=== PATIENT | male | born 1945 | race Two or more races ===

== ENCOUNTER 2016-11-25 16:32 | Inpatient (IN) | payer MEDICARE, OTHER ==
[~2016-11-25] VITALS: Ht 177.8 cm; Wt 72.3 kg
[2016-11-25] MEDS ORDERED: SPIR25TA3 PO (17:17)
[2016-11-25] MEDS ORDERED: SERT100T PO (17:17)
[2016-11-25] MEDS ORDERED: INUL2TAB4 PO (17:17)
[2016-11-25] MEDS ORDERED: POLY17PO5 PO (17:17)
[2016-11-25] MEDS ORDERED: [UNRECOGNIZED DRUG - OTHER] PO (17:17)
[2016-11-25] MEDS ORDERED: SIMV40TA PO (17:17)
[2016-11-25] MEDS ORDERED: BISA10SU2 RC (17:17)
[2016-11-25] MEDS ORDERED: ASPI81TA50 PO (17:17)
[2016-11-25] MEDS ORDERED: MAGN2400 PO (17:17)
[2016-11-25] MEDS ORDERED: MULTI PO (17:17)
[2016-11-25] MEDS ORDERED: DEXT1DRO7 OP (17:17)
[2016-11-25] MEDS ORDERED: PRAM1TAB5 PO (17:17)
[2016-11-25] MEDS ORDERED: CLON0.2T PO (17:17)
[2016-11-25] MEDS ORDERED: LISI-334 PO (17:17)
[2016-11-25] MEDS ORDERED: METO100T2 PO (17:17)
[2016-11-25] MEDS ORDERED: BUPR300T3 PO (17:17)
[2016-11-25] MEDS ORDERED: QUET25TA PO (17:17)
[2016-11-25] MEDS ORDERED: HYDR25TA9 PO (17:17)
[2016-11-25] MEDS ORDERED: POTA10TA12 PO (17:17)
[2016-11-25] MEDS ORDERED: BISACODYL 10 MG SUPP.RECT RC PRN (18:15)
[2016-11-25] MEDS ORDERED: MAG HYDROX/AL HYDROX/SIMETH 30 ML ORAL.SUSP PO PRN (18:15)
[2016-11-25] MEDS ORDERED: METHYL SALICYLATE/MENTHOL TOPICAL OINTMENT 29GM TUBE. TP PRN (18:15)
[2016-11-25] MEDS ORDERED: ACETAMINOPHEN 325 MG TABLET PO PRN (18:15)
[2016-11-25 18:27] VITALS: BP 146/100
[2016-11-25] MEDS ORDERED: MAGNESIUM HYDROXIDE 2,400 MG/30 ML ORAL.SUSP. PO PRN (18:30)
[2016-11-25] MEDS ORDERED: POLYVINYL ALCOHOL 1.4% OPHTH SOLUTION 15ML BOTTLE. OU PRN (18:30)
[2016-11-25] MEDS ORDERED: PRAMIPEXOLE 0.5 MG TABLET. PO PRN (21:00)
[2016-11-25] MEDS: METOPROLOL TART IMMED RELEASE 50 MG TABLET PO SCH (21:03)
[2016-11-25] MEDS: SIMVASTATIN 40 MG TABLET. PO SCH (21:03)
[2016-11-25] MEDS: QUEtiapine 25 MG TABLET. PO SCH (21:03)
[2016-11-25] MEDS: CLONIDINE HCL 0.2 MG TABLET PO SCH (21:04)
--- NOTE | 2016-11-25 21:26 | EKG ---
[address] [address] Test Date: 2016-11-25 Test Time: 21:24:29 Pat Name: CAITIE TORRES Department: Room: [address] [place] [address] Gender: M Harness Maker: : 1945 Requested By: ALBINA ASHBY Order Number: [id number] Reading MD: Measurements Intervals [place] Rate: 65 P: AK: QRS: 37 QRSD: 134 T: 5 QT: 444 QTc: 463 Interpretive Statements ATRIAL FIBRILLATION NON SPECIFIC INTRAVENTRICULAR BLOCK QRS(T) CONTOUR ABNORMALITY CONSIDER INFERIOR MYOCARDIAL DAMAGE RI6.01 Unconfirmed report No previous ECG available for comparison
[2016-11-26] MEDS ORDERED: OLANZAPINE ZYDIS 5 MG TAB.RAPDIS PO PRN (06:00)
[2016-11-26 08:24] LABS: BASO % 1 % (0-3); EOS # 0.1 x10^3/uL (0.0-0.7); EOS % 2 % (0-3); HEMATOCRIT 40.6 % (39.0-53.0); HEMOGLOBIN 13.2 g/dL (13.0-17.5); LYMPH # 0.7 x10^3/uL (1.0-4.8); LYMPH % 14 % (24-48); MEAN CORPUSCULAR HEMOGLOBIN 30 pg (25-35); MEAN CORPUSCULAR HGB CONC 33 g/dL (31-37); MEAN CORPUSCULAR VOLUME 92 fL (79-100); MONO # 0.2 x10^3/uL (0.0-1.1); MONO % 5 % (0-9); NEUT # 3.9 x10^3uL (1.8-7.7); NEUT % 79 % (31-73); PLATELET COUNT 123 x10^3/uL (140-400); RED BLOOD COUNT 4.41 x10^6/uL (4.30-5.70); RED CELL DISTRIBUTION WIDTH 14.8 % (11.5-14.5); WHITE BLOOD COUNT 4.9 x10^3/uL (4.0-11.0)
[2016-11-26 08:42] LABS: ALBUMIN 3.5 g/dL (3.4-5.0); ALBUMIN/GLOBULIN RATIO 1.1 (1.0-1.7); CALCIUM 8.6 mg/dL (8.5-10.1); CREATININE 1.1 mg/dL (0.7-1.3); MAGNESIUM 2.1 mg/dL (1.8-2.4); POTASSIUM 3.6 mmol/L (3.5-5.1); TOTAL BILIRUBIN 0.5 mg/dL (0.2-1.0); TOTAL PROTEIN 6.6 g/dL (6.4-8.2)
[2016-11-26] MEDS ORDERED: buPROPion XL 150 MG TAB.ER.24H PO SCH (09:00)
[2016-11-26] MEDS: [UNRECOGNIZED DRUG - OTHER] PO SCH (09:00)
[2016-11-26] MEDS: POLYETHYLENE GLYCOL 3350 17 GM PACKET. PO SCH (09:11)
[2016-11-26] MEDS: METOPROLOL TART IMMED RELEASE 50 MG TABLET PO SCH ×2 (09:12→19:56)
[2016-11-26] MEDS: ASPIRIN ENTERIC COATED 81 MG TABLET.DR. PO SCH (09:12)
[2016-11-26] MEDS: CALCIUM POLYCARBOPHIL 625 MG TABLET PO SCH (09:12)
[2016-11-26] MEDS: SERTRALINE 100 MG TABLET. PO SCH (09:13)
[2016-11-26] MEDS: QUEtiapine 25 MG TABLET. PO SCH ×2 (09:13→19:56)
[2016-11-26 10:29] VITALS: BP 137/83
[2016-11-26 14:16] LABS: THYROID STIM HORMONE (TSH) 3.783 uIU/mL (0.358-3.740)
[2016-11-26 14:19] LABS: IRON,SERUM 67 ug/dL (65-175)
[2016-11-26 15:23] VITALS: BP 146/88
[2016-11-26] MEDS: SIMVASTATIN 40 MG TABLET. PO SCH (19:56)
[2016-11-26] MEDS: CLONIDINE HCL 0.2 MG TABLET PO SCH (19:56)
--- NOTE | 2016-11-26 20:43 | PDOC ---
Exam Remy Demential Exam: Remy Note: Please also refer to the separate dictated note~for this date of service dictated separately.~Patient seen individually. Discussed the patient with Nursing staff reviewed the chart.~Reviewed interim history and current functioning. Reviewed vital signs,~Labs/ Radiology~and current medications noted below. Continue current treatment with the changes noted in the dictated addendum note Assessment: Vital Signs: Vital Signs Date Time Temp Pulse Resp B/P Pulse Ox O2 Delivery O2 Flow Rate FiO2 11/26/16 19:56 66 146/88 11/26/16 15:23 97.0 20 94 Labs: Laboratory Tests Test 11/26/16 08:03 White Blood Count 4.9x10^3/uL (4.0-11.0) Red Blood Count 4.41x10^6/uL (4.30-5.70) Hemoglobin 13.2g/dL (13.0-17.5) Hematocrit 40.6% (39.0-53.0) Mean Corpuscular Volume 92fL (79-100) Mean Corpuscular Hemoglobin 30pg (25-35) Mean Corpuscular Hemoglobin Concent 33g/dL (31-37) Red Cell Distribution Width 14.8% (11.5-14.5) H Platelet Count 123x10^3/uL (140-400) L Neutrophils (%) (Auto) 79% (31-73) H Lymphocytes (%) (Auto) 14% (24-48) L Monocytes (%) (Auto) 5% (0-9) Eosinophils (%) (Auto) 2% (0-3) Basophils (%) (Auto) 1% (0-3) Neutrophils # (Auto) 3.9x10^3uL (1.8-7.7) Lymphocytes # (Auto) 0.7x10^3/uL (1.0-4.8) L Monocytes # (Auto) 0.2x10^3/uL (0.0-1.1) Eosinophils # (Auto) 0.1x10^3/uL (0.0-0.7) Basophils # (Auto) 0.0x10^3/uL (0.0-0.2) Sodium Level 145mmol/L (136-145) Potassium Level 3.6mmol/L (3.5-5.1) Chloride Level 105mmol/L (98-107) Carbon Dioxide Level 32mmol/L (21-32) Anion Gap 8 (6-14) Blood Urea Nitrogen 24mg/dL (8-26) Creatinine 1.1mg/dL (0.7-1.3) Estimated GFR (Cockcroft-Gault) 66.0 BUN/Creatinine Ratio 22 (6-20) H Glucose Level 105mg/dL (70-99) H Calcium Level 8.6mg/dL (8.5-10.1) Magnesium Level 2.1mg/dL (1.8-2.4) Iron Level 67ug/dL (65-175) Total Iron Binding Capacity 301ug/dL (250-450) Iron Saturation 22% (15-34) Total Bilirubin 0.5mg/dL (0.2-1.0) Aspartate Amino Transferase (AST) 27U/L (15-37) Alanine Aminotransferase (ALT) 36U/L (16-63) Alkaline Phosphatase 65U/L (46-116) Total Protein 6.6g/dL (6.4-8.2) Albumin 3.5g/dL (3.4-5.0) Albumin/Globulin Ratio 1.1 (1.0-1.7) Triglycerides Level 153mg/dL (0-150) H Cholesterol Level 181mg/dL (0-200) LDL Cholesterol, Calculated 111mg/dL (0-100) H VLDL Cholesterol, Calculated 30mg/dL (0-40) HDL Cholesterol 40mg/dL (40-60) Cholesterol/HDL Ratio 4.0 Thyroid Stimulating Hormone (TSH) 3.783uIU/mL (0.358-3.740) Current Medications: Meds: Current Medications Acetaminophen (Tylenol) 650 mg PRN Q6HRS PRN PO PAIN / TEMP; Start 11/25/16 at 18:15 Multi-Ingredient Ointment (Analgesic [place]) 1 bridger PRN QID PRN TP MUSCLE PAIN; Start 11/25/16 at 18:15 Al Hydroxide/Mg Hydroxide (Mylanta Plus Xs) 15 ml PRN AFTMEALHC PRN PO DYSPEPSIA; Start 11/25/16 at 18:15 Aspirin (Aspirin Enteric Coated) 81 mg DAILY PO Last administered on 11/26/16t 09:12; Start 11/26/16 at 09:00 Bisacodyl (Dulcolax Supp) 10 mg PRN DAILY PRN RC CONSTIPATION; Start 11/25/16 at 18:15 Clonidine HCl (Catapres) 0.2 mg HS PO Last administered on 11/26/16 19:56; Start 11/25/16 at 21:00 Polyethylene Glycol (miraLAX) 17 gm DAILY PO Last administered on 11/26/16 09: 11; Start 11/26/16 at 09:00 Simvastatin (Zocor) 40 mg HS PO Last administered on 11/26/16 19:56; Start 11/25/16 at 21:00 Artificial Tears (Artificial Tears) 1 drop PRN TID PRN OU DRY EYE; Start at 18:30 Calcium Polycarbophil (Fibercon) 625 mg DAILY PO Last administered on 09:12; Start 11/26/16 at 09:00 Magnesium Hydroxide (Milk Of Magnesia) 2,400 mg PRN QHS PRN PO CONSTIPATION; Start 11/25/16 at 18:30 Metoprolol Tartrate (Lopressor) 100 mg BID PO Last administered on 11/26/16 19 :56; Start 11/25/16 at 21:00 Pramipexole Dihydrochloride (miraPEX) 1 mg PRN QHS PRN PO RESTLESS LEG; Start 11/25/16 at 21:00 Multivitamins (Chewable-Saray) 2 tab DAILY PO ; Start 11/26/16 at 09:00 Bupropion HCl (Wellbutrin Xl) 450 mg DAILY PO Last administered on 11/26/16 09 :13; Start 11/26/16 at 09:00; Stop 11/26/16 at 18:23; Status DC Quetiapine Fumarate (SEROquel) 25 mg BID PO Last administered on 11/26/16 19: 56; Start 11/25/16 at 21:00 Sertraline HCl (Zoloft) 200 mg DAILY PO Last administered on 11/26/16 09:13; Start 11/26/16 at 09:00 Olanzapine (Zyprexa Zydis) 2.5 mg PRN Q2HR PRN PO PSYCHOSIS Last administered on 11/26/16 07:35; Start 11/26/16 at 06:00 Hydrochlorothiazide (Hydrodiuril) 25 mg DAILY PO ; Start 11/27/16 at 09:00 Potassium Chloride (Klor-Con) 10 meq DAILY PO ; Start 11/27/16 at 09:00 Spironolactone (Aldactone) 25 mg DAILY PO ; Start 11/27/16 at 09:00 Bupropion HCl (Wellbutrin Xl) 150 mg DAILY PO ; Start 11/27/16 at 09:00 Rivastigmine (Exelon) 1 patch DAILY TD ; Start 11/27/16 at 09:00 Memantine (Namenda) 5 mg DAILY PO ; Start 11/27/16 at 09:00; Stop 11/30/16 at 08 :00 Memantine (Namenda) 5 mg BID PO ; Start 11/30/16 at 09:00; Stop 12/03/16 at 08: 00 Memantine (Namenda) 5 mg DAILY PO ; Start 12/03/16 at 09:00; Stop 12/06/16 at 08 :00 Memantine (Namenda) 10 mg HS PO ; Start 12/03/16 at 21:00; Stop 12/06/16 at 20: 00 Memantine (Namenda) 10 mg BID PO ; Start 12/08/16 at 09:00 Active Scripts Active Reported Mirapex (Pramipexole Di-Hcl) 1 Mg Tablet 1 Mg PO PRN DAILY PRN Milk Of Magnesia (Magnesium Hydroxide) 2,400 Mg/10 Ml Oral.susp 2,400 Mg PO PRN QHS PRN Bisacodyl 10 Mg Supp.rect 10 Mg RC PRN DAILY PRN Artificial Tears (Dextran 70/Hypromellose) 1 Each Droperette 1 Each OP PRN TID PRN Zocor (Simvastatin) 40 Mg Tablet 40 Mg PO HS Quetiapine Fumarate 25 Mg Tablet 25 Mg PO BID Clonidine Hcl 0.2 Mg Tablet 0.2 Mg PO HS Spironolactone 25 Mg Tablet 25 Mg PO DAILY Zoloft (Sertraline Hcl) 100 Mg Tablet 200 Mg PO DAILY Klor-Con M10 (Potassium Chloride) 10 Meq Tab.er.prt 10 Meq PO DAILY Miralax (Polyethylene Glycol 3350) 17 Gm Powd.pack 17 Gm PO DAILY [multi+omega-3 gummy] 2 Tab.chew PO DAILY Metoprolol Tartrate 100 Mg Tablet 100 Mg PO BID Lisinopril 20 Mg Tablet 60 Mg PO DAILY Hydrochlorothiazide Tablet (Hydrochlorothiazide) 25 Mg Tablet 25 Mg PO DAILY Fiber Gummies (Inulin) 2 Gm Tab.chew 4 Gm PO DAILY Wellbutrin Xl (Bupropion Hcl) 300 Mg Tab.er.24h 450 Mg PO DAILY Aspir-Low (Aspirin) 81 Mg Tablet.dr 81 Mg PO DAILY Diagnosis: Problems: (1) Anxiety disorder (2) Dementia in Alzheimer's disease with delusions (3) Dementia in Alzheimer's disease with depression (4) Lewy body dementia with behavioral disturbance (5) Impulse control disorder ALBINA ASHBY MD Nov 26, 2016 20:43
--- NOTE | 2016-11-26 21:12 | HP ---
ADMIT DATE: 11/25/2016 PSYCHIATRIC ADMISSION HISTORY/EVALUATION This is a late entry for 11/25/2016, covers elements not covered in my initial note of 11/25/2016. The patient was seen individually the evening of 11/25/2016. Discussed several times with nursing staff, reviewed information from [facility] and the patient's residential, [place], reviewed the chart. IDENTIFYING DATA: The patient is a 71-year-old male who resides at [facility] with a diagnosis of dementia, Lewy body type. Recently, he has been increasingly aggressive, physically and verbally. He has been threatening. He is reportedly oriented just to himself. He has been threatening to shoot staff. Symptoms have been worsening with sundowning and he is referred to us for inpatient psychiatric stabilization by Dr. Steve Blake, his primary care physician. The patient initially was sent to the [facility] Emergency Room, admitted on the medical/surgical floor overnight. They were unable to have him on their psychiatric unit and therefore referred to us for psychiatric stabilization in the hospital. CHIEF COMPLAINT: "I don't remember where I live. No, I don't know the year." HISTORY OF PRESENT ILLNESS: The patient has a history of dementia, Lewy body type. He has been residing at [facility]. More recently, the patient has been agitated, aggressive, psychotic as noted above. Behaviors have been dangerous, unmanageable. No clear history of bipolar disorder. He has had some sleep and appetite changes. PAST PSYCHIATRIC HISTORY: As above. MEDICAL HISTORY: Hypertension, status post cardiac arrest, hard of hearing, impaired ambulation in a wheelchair, pacemaker in place, status post polio with a leg brace. DRUG ALLERGIES: Negative. CURRENT PSYCHOTROPICS: Zoloft 200 mg a day, Wellbutrin 450 mg a day, Seroquel 25 b.i.d., and Zyprexa p.r.n. was added at admission DRUG ALLERGIES: Negative. FAMILY HISTORY: Noncontributory. SOCIAL HISTORY: No alcohol, drug abuse, physical, sexual or elder abuse. He is not known to be a perpetrator. REVIEW OF SYSTEMS: The patient was seen individually the evening of 11/25/2016. Ambulation impaired. No CV, , pulmonary, eye, ENT system symptoms on review. MENTAL STATUS EXAMINATION: Oriented to himself. Insight, judgment, recent and remote memory, attention, concentration, fund of knowledge poor, consistent with his diagnosis. At times, he appeared psychotic, intermittently agitated. No active suicidal or homicidal ideation. PHYSICAL EXAMINATION: VITAL SIGNS: Temperature 98, pulse 83, BP 134/74. IMPRESSION: Major neurocognitive disorder, Lewy body type with delusion, depression, behavioral disturbance; anxiety disorder, unspecified; impulse control disorder, unspecified. Rest diagnoses as above. PLAN: Continue the patient on his current psychotropics. Zyprexa has been added p.r.n. I will see the patient daily individually from a psychiatric standpoint. Request medical followup with Dr. Shah/Dr. Michael. Consider adjustments in psychotropics after baseline assessment. MAN Fei ASHBY MD DR: GHAZAL/lamin JOB#: [id number] / [id number]
[2016-11-27 03:16] LABS: T3 TOTAL 84 ng/dL (71-180); THYROXINE 5.3 ug/dL (4.5-12.0); VITAMIN D25(OH)TOTAL 34.3 ng/mL (30.0-100.0)
[2016-11-27 05:40] VITALS: BP 139/82
[2016-11-27] MEDS: ASPIRIN ENTERIC COATED 81 MG TABLET.DR. PO SCH (08:03)
[2016-11-27] MEDS: QUEtiapine 25 MG TABLET. PO SCH ×2 (08:03→19:41)
[2016-11-27] MEDS: SERTRALINE 100 MG TABLET. PO SCH (08:03)
[2016-11-27] MEDS: CALCIUM POLYCARBOPHIL 625 MG TABLET PO SCH (08:03)
[2016-11-27] MEDS: METOPROLOL TART IMMED RELEASE 50 MG TABLET PO SCH ×2 (08:03→19:42)
[2016-11-27] MEDS: POLYETHYLENE GLYCOL 3350 17 GM PACKET. PO SCH (08:03)
[2016-11-27] MEDS: SPIRONOLACTONE 25 MG TABLET PO SCH (08:11)
[2016-11-27] MEDS: RIVASTIGMINE 4.6MG PATCH. TD SCH (08:11)
[2016-11-27] MEDS: MEMANTINE 5 MG TABLET. PO SCH (08:11)
[2016-11-27] MEDS: buPROPion XL 150 MG TAB.ER.24H PO SCH (08:11)
[2016-11-27] MEDS: POTASSIUM CHLORIDE 10 MEQ TABLET.ER. PO SCH (08:11)
[2016-11-27] MEDS: HYDROCHLOROTHIAZIDE 25 MG TABLET PO SCH (08:12)
[2016-11-27] MEDS: [UNRECOGNIZED DRUG - OTHER] PO SCH (08:13)
--- NOTE | 2016-11-27 12:28 | PN ---
DATE: 11/26/2016 PSYCHIATRY PROGRESS NOTE SUBJECTIVE: The patient was seen on rounds evening of 11/26/2016. Discussed the patient with the nursing staff, reviewed the chart. This note covers elements not covered in my initial note. Overall, the patient continues to be quite confused, oriented to himself, somewhat anxious, restless at this time, resistive in the morning and received Zyprexa and then did better. REVIEW OF SYSTEMS: Ambulation impaired, in his wheelchair. No CV, , pulmonary, eye system symptoms on review. Reliability poor. MENTAL STATUS EXAM: Oriented to himself. Insight, judgment, recent and remote memory, attention, concentration, fund of knowledge poor, consistent with his diagnosis mentioned in my initial note. PLAN: Given the patient's diagnosis of dementia, Lewy body type, we will go ahead and start Exelon patch 4.6 mg a day for one week and then 9.5 mg a day and start Namenda 5 mg a day, increasing slowly to 10 mg twice a day. We will reduce the Wellbutrin from 450 mg a day down to 150 mg a day. Continue Zoloft 200 mg a day, Seroquel 25 mg b.i.d., Zyprexa p.r.n. Adjust further as clinically indicated. ALBINA ASHBY MD DR: GHAZAL/lamin JOB#: [id number] / [id number]
--- NOTE | 2016-11-27 15:43 | HP ---
ADMIT DATE: 11/26/2016 REASON FOR ADMISSION TO SENIOR BEHAVIORAL UNIT: This is a 71-year-old male who resides at [facility], and in the last month or so, he has been more aggressive, verbally threatening staff, increased confusing, threatening to shoot staff, threatening to break the nurse's arm and some sundowning. PAST MEDICAL HISTORY: History of ND, polio with right leg deformity, dementia with Lewy body, hypertension. He has had a cardiac arrest in the past, hard of hearing, edema, pacemaker, polio with leg brace, and sleep apnea. He does use CPAP at night ____. MEDICATIONS: Reviewed, and his quetiapine was discontinued on 11/19/2016 that was 12.5 mg he was getting at noon and it actually was increased to 25 b.i.d. on 11/19/2016. He was getting 25 mg at night but only 12.5 during the day. Other meds are available on the MAR they were reviewed. Functionality is confined to a wheelchair. He is incontinent. ____ being able to do much for himself. He does wheel. He does have good upper body strength according to the daughter. OBJECTIVE: VITAL SIGNS: Blood pressure 146/88, temperature 97, pulse 66, respirations 20, pulse ox 97% on room air. Height 70 inches, weight 160 pounds. GENERAL: He is slightly hard of hearing. He wears glasses. HEENT: His eyes are clear. Nose was patent. His throat was clear. NECK: Supple, without adenopathy. There were no carotid bruits. LUNGS: Clear to auscultation. CARDIOVASCULAR: Slightly irregular rhythm and rate and then became regular. ABDOMEN: Soft, nontender. EXTREMITIES: Without edema. MUSCULOSKELETAL: He has polio wasting of the right leg with a brace, very good upper body strength. Reflexes 2+/4 ____ relax. SKIN: He has some seborrhea on his face just a mild case. NEUROLOGIC: Cranial nerves are intact. LABORATORY DATA: Platelet count is slightly low at 123. Chemistry: TSH is 3.783, terribly remarkable. MENTAL STATUS: Poor historian and tried to cover it up. ASSESSMENT: 1. A 71-year-old Lewy body dementia with behavior disturbance. 2. ____. 3. Incontinence. 4. Mild thrombocytopenia. 5. Slightly elevated TSH. We will see what the other liver function tests are. 6. Seborrhea ____. PLAN: Follow along . ____. KHALIF SPEARS DO DR: LATASHA/lamin JOB#: [id number] / [id number]
[2016-11-27 16:08] VITALS: BP 150/95
--- NOTE | 2016-11-27 18:16 | PDOC ---
Exam Remy Demential Exam: Remy Note: Please also refer to the separate dictated note~for this date of service dictated separately.~Patient seen individually. Discussed the patient with Nursing staff reviewed the chart.~Reviewed interim history and current functioning. Reviewed vital signs,~Labs/ Radiology~and current medications noted below. Continue current treatment with the changes noted in the dictated addendum note Assessment: Vital Signs: Vital Signs Date Time Temp Pulse Resp B/P Pulse Ox O2 Delivery O2 Flow Rate FiO2 11/27/16 16:08 97.6 73 18 150/95 95 I&O Intake and Output 11/27/16 07:00 Intake Total 1200 ml Balance 1200 ml Intake Oral 1200 ml Current Medications: Meds: Current Medications Acetaminophen (Tylenol) 650 mg PRN Q6HRS PRN PO PAIN / TEMP; Start 11/25/16 at 18:15 Multi-Ingredient Ointment (Analgesic [place]) 1 bridger PRN QID PRN TP MUSCLE PAIN; Start 11/25/16 at 18:15 Al Hydroxide/Mg Hydroxide (Mylanta Plus Xs) 15 ml PRN AFTMEALHC PRN PO DYSPEPSIA; Start 11/25/16 at 18:15 Aspirin (Aspirin Enteric Coated) 81 mg DAILY PO Last administered on 11/27/16 08:03; Start 11/26/16 at 09:00 Bisacodyl (Dulcolax Supp) 10 mg PRN DAILY PRN RC CONSTIPATION; Start 11/25/16 at 18:15 Clonidine HCl (Catapres) 0.2 mg HS PO Last administered on 11/26/16 19:56; Start 11/25/16 at 21:00 Polyethylene Glycol (miraLAX) 17 gm DAILY PO Last administered on 11/27/16 08: 03; Start 11/26/16 at 09:00 Simvastatin (Zocor) 40 mg HS PO Last administered on 11/26/16 19:56; Start 11/25/16 at 21:00 Artificial Tears (Artificial Tears) 1 drop PRN TID PRN OU DRY EYE; Start at 18:30 Calcium Polycarbophil (Fibercon) 625 mg DAILY PO Last administered on 08:03; Start 11/26/16 at 09:00 Magnesium Hydroxide (Milk Of Magnesia) 2,400 mg PRN QHS PRN PO CONSTIPATION; Start 11/25/16 at 18:30 Metoprolol Tartrate (Lopressor) 100 mg BID PO Last administered on 11/27/16 08 :03; Start 11/25/16 at 21:00 Pramipexole Dihydrochloride (miraPEX) 1 mg PRN QHS PRN PO RESTLESS LEG; Start 11/25/16 at 21:00 Multivitamins (Chewable-Saray) 2 tab DAILY PO Last administered on 11/27/16 08: 13; Start 11/26/16 at 09:00 Bupropion HCl (Wellbutrin Xl) 450 mg DAILY PO Last administered on 11/26/16 09 :13; Start 11/26/16 at 09:00; Stop 11/26/16 at 18:23; Status DC Quetiapine Fumarate (SEROquel) 25 mg BID PO Last administered on 11/27/16 08: 03; Start 11/25/16 at 21:00 Sertraline HCl (Zoloft) 200 mg DAILY PO Last administered on 11/27/16 08:03; Start 11/26/16 at 09:00 Olanzapine (Zyprexa Zydis) 2.5 mg PRN Q2HR PRN PO PSYCHOSIS Last administered on 11/26/16 07:35; Start 11/26/16 at 06:00 Hydrochlorothiazide (Hydrodiuril) 25 mg DAILY PO Last administered on 08:12; Start 11/27/16 at 09:00 Potassium Chloride (Klor-Con) 10 meq DAILY PO Last administered on 11/27/16 08 :11; Start 11/27/16 at 09:00 Spironolactone (Aldactone) 25 mg DAILY PO Last administered on 11/27/16 08:11 ; Start 11/27/16 at 09:00 Bupropion HCl (Wellbutrin Xl) 150 mg DAILY PO Last administered on 11/27/16 08 :11; Start 11/27/16 at 09:00 Rivastigmine (Exelon) 1 patch DAILY TD Last administered on 11/27/16 08:11; Start 11/27/16 at 09:00 Memantine (Namenda) 5 mg DAILY PO Last administered on 11/27/16 08:11; Start 11/27/16 at 09:00; Stop 11/30/16 at 08:00 Memantine (Namenda) 5 mg BID PO ; Start 11/30/16 at 09:00; Stop 12/03/16 at 08: 00 Memantine (Namenda) 5 mg DAILY PO ; Start 12/03/16 at 09:00; Stop 12/06/16 at 08 :00 Memantine (Namenda) 10 mg HS PO ; Start 12/03/16 at 21:00; Stop 12/06/16 at 20: 00 Memantine (Namenda) 10 mg BID PO ; Start 12/08/16 at 09:00 Active Scripts Active Reported Mirapex (Pramipexole Di-Hcl) 1 Mg Tablet 1 Mg PO PRN DAILY PRN Milk Of Magnesia (Magnesium Hydroxide) 2,400 Mg/10 Ml Oral.susp 2,400 Mg PO PRN QHS PRN Bisacodyl 10 Mg Supp.rect 10 Mg RC PRN DAILY PRN Artificial Tears (Dextran 70/Hypromellose) 1 Each Droperette 1 Each OP PRN TID PRN Zocor (Simvastatin) 40 Mg Tablet 40 Mg PO HS Quetiapine Fumarate 25 Mg Tablet 25 Mg PO BID Clonidine Hcl 0.2 Mg Tablet 0.2 Mg PO HS Spironolactone 25 Mg Tablet 25 Mg PO DAILY Zoloft (Sertraline Hcl) 100 Mg Tablet 200 Mg PO DAILY Klor-Con M10 (Potassium Chloride) 10 Meq Tab.er.prt 10 Meq PO DAILY Miralax (Polyethylene Glycol 3350) 17 Gm Powd.pack 17 Gm PO DAILY [multi+omega-3 gummy] 2 Tab.chew PO DAILY Metoprolol Tartrate 100 Mg Tablet 100 Mg PO BID Lisinopril 20 Mg Tablet 60 Mg PO DAILY Hydrochlorothiazide Tablet (Hydrochlorothiazide) 25 Mg Tablet 25 Mg PO DAILY Fiber Gummies (Inulin) 2 Gm Tab.chew 4 Gm PO DAILY Wellbutrin Xl (Bupropion Hcl) 300 Mg Tab.er.24h 450 Mg PO DAILY Aspir-Low (Aspirin) 81 Mg Tablet.dr 81 Mg PO DAILY Diagnosis: Problems: (1) Impulse control disorder (2) Lewy body dementia with behavioral disturbance (3) 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
[2016-11-27] MEDS: SIMVASTATIN 40 MG TABLET. PO SCH (19:42)
[2016-11-27] MEDS: CLONIDINE HCL 0.2 MG TABLET PO SCH (19:44)
[2016-11-28 05:42] VITALS: BP 108/70
[2016-11-28] MEDS: [UNRECOGNIZED DRUG - OTHER] PO SCH (08:45)
[2016-11-28] MEDS: CALCIUM POLYCARBOPHIL 625 MG TABLET PO SCH (08:45)
[2016-11-28] MEDS: HYDROCHLOROTHIAZIDE 25 MG TABLET PO SCH (08:45)
[2016-11-28] MEDS: buPROPion XL 150 MG TAB.ER.24H PO SCH (08:45)
[2016-11-28] MEDS: METOPROLOL TART IMMED RELEASE 50 MG TABLET PO SCH ×2 (08:45→19:47)
[2016-11-28] MEDS: QUEtiapine 25 MG TABLET. PO SCH ×2 (08:45→19:46)
[2016-11-28] MEDS: POLYETHYLENE GLYCOL 3350 17 GM PACKET. PO SCH (08:46)
[2016-11-28] MEDS: SERTRALINE 100 MG TABLET. PO SCH (08:46)
[2016-11-28] MEDS: POTASSIUM CHLORIDE 10 MEQ TABLET.ER. PO SCH (08:46)
[2016-11-28] MEDS: ASPIRIN ENTERIC COATED 81 MG TABLET.DR. PO SCH (08:46)
[2016-11-28] MEDS: MEMANTINE 5 MG TABLET. PO SCH (08:46)
[2016-11-28] MEDS: RIVASTIGMINE 4.6MG PATCH. TD SCH (08:46)
[2016-11-28] MEDS: SPIRONOLACTONE 25 MG TABLET PO SCH (08:50)
--- NOTE | 2016-11-28 09:32 | PDOC ---
Exam Remy Demential Exam: Remy Note: Please also refer to the separate dictated note~for this date of service dictated separately.~Patient seen individually. Discussed the patient with Nursing staff reviewed the chart.~Reviewed interim history and current functioning. Reviewed vital signs,~Labs/ Radiology~and current medications noted below. Continue current treatment with the changes noted in the dictated addendum note Assessment: Vital Signs: Vital Signs Date Time Temp Pulse Resp B/P Pulse Ox O2 Delivery O2 Flow Rate FiO2 11/28/16 08:45 60 108/70 11/28/16 05:42 97.6 20 96 I&O Intake and Output 11/28/16 07:00 Intake Total 960 ml Balance 960 ml Intake Oral 960 ml # Bowel Movements 1 Current Medications: Meds: Current Medications Acetaminophen (Tylenol) 650 mg PRN Q6HRS PRN PO PAIN / TEMP; Start 11/25/16 at 18:15 Multi-Ingredient Ointment (Analgesic [place]) 1 bridger PRN QID PRN TP MUSCLE PAIN; Start 11/25/16 at 18:15 Al Hydroxide/Mg Hydroxide (Mylanta Plus Xs) 15 ml PRN AFTMEALHC PRN PO DYSPEPSIA; Start 11/25/16 at 18:15 Aspirin (Aspirin Enteric Coated) 81 mg DAILY PO Last administered on 11/28/16 08:46; Start 11/26/16 at 09:00 Bisacodyl (Dulcolax Supp) 10 mg PRN DAILY PRN RC CONSTIPATION; Start 11/25/16 at 18:15 Clonidine HCl (Catapres) 0.2 mg HS PO Last administered on 11/27/16 19:44; Start 11/25/16 at 21:00 Polyethylene Glycol (miraLAX) 17 gm DAILY PO Last administered on 11/28/16 08: 46; Start 11/26/16 at 09:00 Simvastatin (Zocor) 40 mg HS PO Last administered on 11/27/16 19:42; Start 11/25/16 at 21:00 Artificial Tears (Artificial Tears) 1 drop PRN TID PRN OU DRY EYE; Start at 18:30 Calcium Polycarbophil (Fibercon) 625 mg DAILY PO Last administered on 08:45; Start 11/26/16 at 09:00 Magnesium Hydroxide (Milk Of Magnesia) 2,400 mg PRN QHS PRN PO CONSTIPATION; Start 11/25/16 at 18:30 Metoprolol Tartrate (Lopressor) 100 mg BID PO Last administered on 11/28/16 08 :45; Start 11/25/16 at 21:00 Pramipexole Dihydrochloride (miraPEX) 1 mg PRN QHS PRN PO RESTLESS LEG; Start 11/25/16 at 21:00 Multivitamins (Chewable-Saray) 2 tab DAILY PO Last administered on 11/28/16 08: 45; Start 11/26/16 at 09:00 Bupropion HCl (Wellbutrin Xl) 450 mg DAILY PO Last administered on 11/26/16 09 :13; Start 11/26/16 at 09:00; Stop 11/26/16 at 18:23; Status DC Quetiapine Fumarate (SEROquel) 25 mg BID PO Last administered on 11/28/16 08: 45; Start 11/25/16 at 21:00 Sertraline HCl (Zoloft) 200 mg DAILY PO Last administered on 11/28/16 08:46; Start 11/26/16 at 09:00 Olanzapine (Zyprexa Zydis) 2.5 mg PRN Q2HR PRN PO PSYCHOSIS Last administered on 11/26/16 07:35; Start 11/26/16 at 06:00 Hydrochlorothiazide (Hydrodiuril) 25 mg DAILY PO Last administered on 08:45; Start 11/27/16 at 09:00 Potassium Chloride (Klor-Con) 10 meq DAILY PO Last administered on 11/28/16 08 :46; Start 11/27/16 at 09:00 Spironolactone (Aldactone) 25 mg DAILY PO Last administered on 11/28/16 08:50 ; Start 11/27/16 at 09:00 Bupropion HCl (Wellbutrin Xl) 150 mg DAILY PO Last administered on 11/28/16 08 :45; Start 11/27/16 at 09:00 Rivastigmine (Exelon) 1 patch DAILY TD Last administered on 11/28/16 08:46; Start 11/27/16 at 09:00 Memantine (Namenda) 5 mg DAILY PO Last administered on 3/12/17at 08:46; Start 11/27/16 at 09:00; Stop 11/30/16 at 08:00 Memantine (Namenda) 5 mg BID PO ; Start 11/30/16 at 09:00; Stop 12/03/16 at 08: 00 Memantine (Namenda) 5 mg DAILY PO ; Start 12/03/16 at 09:00; Stop 12/06/16 at 08 :00 Memantine (Namenda) 10 mg HS PO ; Start 12/03/16 at 21:00; Stop 12/06/16 at 20: 00 Memantine (Namenda) 10 mg BID PO ; Start 12/08/16 at 09:00 Active Scripts Active Reported Mirapex (Pramipexole Di-Hcl) 1 Mg Tablet 1 Mg PO PRN DAILY PRN Milk Of Magnesia (Magnesium Hydroxide) 2,400 Mg/10 Ml Oral.susp 2,400 Mg PO PRN QHS PRN Bisacodyl 10 Mg Supp.rect 10 Mg RC PRN DAILY PRN Artificial Tears (Dextran 70/Hypromellose) 1 Each Droperette 1 Each OP PRN TID PRN Zocor (Simvastatin) 40 Mg Tablet 40 Mg PO HS Quetiapine Fumarate 25 Mg Tablet 25 Mg PO BID Clonidine Hcl 0.2 Mg Tablet 0.2 Mg PO HS Spironolactone 25 Mg Tablet 25 Mg PO DAILY Zoloft (Sertraline Hcl) 100 Mg Tablet 200 Mg PO DAILY Klor-Con M10 (Potassium Chloride) 10 Meq Tab.er.prt 10 Meq PO DAILY Miralax (Polyethylene Glycol 3350) 17 Gm Powd.pack 17 Gm PO DAILY [multi+omega-3 gummy] 2 Tab.chew PO DAILY Metoprolol Tartrate 100 Mg Tablet 100 Mg PO BID Lisinopril 20 Mg Tablet 60 Mg PO DAILY Hydrochlorothiazide Tablet (Hydrochlorothiazide) 25 Mg Tablet 25 Mg PO DAILY Fiber Gummies (Inulin) 2 Gm Tab.chew 4 Gm PO DAILY Wellbutrin Xl (Bupropion Hcl) 300 Mg Tab.er.24h 450 Mg PO DAILY Aspir-Low (Aspirin) 81 Mg Tablet.dr 81 Mg PO DAILY Diagnosis: Problems: (1) Anxiety disorder (2) Dementia in Alzheimer's disease with delusions (3) Dementia in Alzheimer's disease with depression (4) Lewy body dementia with behavioral disturbance (5) Impulse control disorder ALBINA ASHBY MD Nov 28, 2016 09:32
--- NOTE | 2016-11-28 09:43 | PN ---
DATE: 11/27/2016 PSYCHIATRIC PROGRESS NOTE This note covers elements not covered in my initial note. Per nursing report, the patient remains confused and oriented to himself, not aggressive. REVIEW OF SYSTEMS: Ambulation impaired, in his wheelchair. No CV, , pulmonary, eye system symptoms on review. Reliability poor. MENTAL STATUS EXAM: Oriented to himself. Insight, judgment, recent and remote memory, attention, concentration, fund of knowledge poor, consistent with his diagnosis. LABORATORY DATA: Reviewed. IMPRESSION: Major neurocognitive disorder, Lewy body type with delusion, depression, behavioral disturbance. Rest diagnosis unchanged. PLAN: Continue Zoloft 200 mg a day. Wellbutrin was reduced to 150 mg a day. He has been started on Aricept to be increased gradually along with Namenda, continue Seroquel and Zyprexa p.r.n. Adjust further as clinically indicated. ALBINA ASHBY MD DR: GHAZAL/lamin JOB#: [id number] / [id number]
[2016-11-28 16:14] VITALS: BP 127/78
[2016-11-28 19:07] LABS: RPR REFLEX Negative (Non Reactive)
[2016-11-28] MEDS: SIMVASTATIN 40 MG TABLET. PO SCH (19:46)
[2016-11-28] MEDS: CLONIDINE HCL 0.2 MG TABLET PO SCH (19:47)
--- NOTE | 2016-11-29 02:12 | PN ---
DATE: 11/28/2016 PSYCHIATRIC PROGRESS NOTE This note covers elements not covered in my initial note of 11/28/2016. Per nursing report, the patient was put himself on the floor in the toilet this morning, no injury noted. He did not call for staff to help him, was trying to shift himself from his wheelchair to the stool and to wash his hands, when he dropped to the floor. REVIEW OF SYSTEMS: Ambulation impaired, in his wheelchair. No CV, , pulmonary, eye system symptoms on review. Reliability poor. MENTAL STATUS EXAM: Oriented to himself. Insight, judgment, recent and remote memory, attention, concentration, fund of knowledge poor, consistent with his diagnosis as mentioned in my initial note. PLAN: Continue current psychotropics, increase the Namenda gradually along with Exelon patch. Adjust further as clinically indicated. MAN Fei ASHBY MD DR: GHAZAL/lamin JOB#: [id number] / [id number]
[2016-11-29 06:59] VITALS: BP 106/63
[2016-11-29] MEDS: METOPROLOL TART IMMED RELEASE 50 MG TABLET PO SCH ×2 (09:00→19:56)
[2016-11-29] MEDS: [UNRECOGNIZED DRUG - OTHER] PO SCH (09:51)
[2016-11-29] MEDS: ASPIRIN ENTERIC COATED 81 MG TABLET.DR. PO SCH (09:51)
[2016-11-29] MEDS: SPIRONOLACTONE 25 MG TABLET PO SCH (09:51)
[2016-11-29] MEDS: POLYETHYLENE GLYCOL 3350 17 GM PACKET. PO SCH (09:52)
[2016-11-29] MEDS: POTASSIUM CHLORIDE 10 MEQ TABLET.ER. PO SCH (09:52)
[2016-11-29] MEDS: SERTRALINE 100 MG TABLET. PO SCH (09:52)
[2016-11-29] MEDS: buPROPion XL 150 MG TAB.ER.24H PO SCH (09:54)
[2016-11-29] MEDS: HYDROCHLOROTHIAZIDE 25 MG TABLET PO SCH (09:54)
[2016-11-29] MEDS: MEMANTINE 5 MG TABLET. PO SCH (09:56)
[2016-11-29] MEDS: QUEtiapine 25 MG TABLET. PO SCH ×2 (10:02→19:56)
[2016-11-29] MEDS: CALCIUM POLYCARBOPHIL 625 MG TABLET PO SCH (10:02)
[2016-11-29] MEDS: RIVASTIGMINE 4.6MG PATCH. TD SCH (10:02)
[2016-11-29 16:33] VITALS: BP 160/88
[2016-11-29] MEDS: SIMVASTATIN 40 MG TABLET. PO SCH (19:56)
[2016-11-29] MEDS: CLONIDINE HCL 0.2 MG TABLET PO SCH (19:57)
--- NOTE | 2016-11-29 21:18 | PDOC ---
Exam Remy Demential Exam: Remy Note: Please also refer to the separate dictated note~for this date of service dictated separately.~Patient seen individually. Discussed the patient with Nursing staff reviewed the chart.~Reviewed interim history and current functioning. Reviewed vital signs,~Labs/ Radiology~and current medications noted below. Continue current treatment with the changes noted in the dictated addendum note Assessment: Vital Signs: Vital Signs Date Time Temp Pulse Resp B/P Pulse Ox O2 Delivery O2 Flow Rate FiO2 11/29/16 19:57 56 181/84 11/29/16 16:33 97.4 18 94 Room Air I&O Intake and Output 11/29/16 07:00 Intake Total 360 ml Balance 360 ml Intake Oral 360 ml Current Medications: Meds: Current Medications Acetaminophen (Tylenol) 650 mg PRN Q6HRS PRN PO PAIN / TEMP; Start 11/25/16 at 18:15 Multi-Ingredient Ointment (Analgesic [place]) 1 bridger PRN QID PRN TP MUSCLE PAIN; Start 11/25/16 at 18:15 Al Hydroxide/Mg Hydroxide (Mylanta Plus Xs) 15 ml PRN AFTMEALHC PRN PO DYSPEPSIA; Start 11/25/16 at 18:15 Aspirin (Aspirin Enteric Coated) 81 mg DAILY PO Last administered on 11/29/16 09:51; Start 11/26/16 at 09:00 Bisacodyl (Dulcolax Supp) 10 mg PRN DAILY PRN RC CONSTIPATION; Start 11/25/16 at 18:15 Clonidine HCl (Catapres) 0.2 mg HS PO Last administered on 11/29/16 19:57; Start 11/25/16 at 21:00 Polyethylene Glycol (miraLAX) 17 gm DAILY PO Last administered on 11/29/16 09: 52; Start 11/26/16 at 09:00 Simvastatin (Zocor) 40 mg HS PO Last administered on 11/29/16 19:56; Start 11/25/16 at 21:00 Artificial Tears (Artificial Tears) 1 drop PRN TID PRN OU DRY EYE; Start at 18:30 Calcium Polycarbophil (Fibercon) 625 mg DAILY PO Last administered on 10:02; Start 11/26/16 at 09:00 Magnesium Hydroxide (Milk Of Magnesia) 2,400 mg PRN QHS PRN PO CONSTIPATION; Start 11/25/16 at 18:30 Metoprolol Tartrate (Lopressor) 100 mg BID PO Last administered on 11/29/16 19 :56; Start 11/25/16 at 21:00 Pramipexole Dihydrochloride (miraPEX) 1 mg PRN QHS PRN PO RESTLESS LEG; Start 11/25/16 at 21:00 Multivitamins (Chewable-Saray) 2 tab DAILY PO Last administered on 11/29/16 09: 51; Start 11/26/16 at 09:00 Bupropion HCl (Wellbutrin Xl) 450 mg DAILY PO Last administered on 11/26/16 09 :13; Start 11/26/16 at 09:00; Stop 11/26/16 at 18:23; Status DC Quetiapine Fumarate (SEROquel) 25 mg BID PO Last administered on 11/29/16 19: 56; Start 11/25/16 at 21:00 Sertraline HCl (Zoloft) 200 mg DAILY PO Last administered on 11/29/16 09:52; Start 11/26/16 at 09:00 Olanzapine (Zyprexa Zydis) 2.5 mg PRN Q2HR PRN PO PSYCHOSIS Last administered on 11/26/16 07:35; Start 11/26/16 at 06:00 Hydrochlorothiazide (Hydrodiuril) 25 mg DAILY PO Last administered on 09:54; Start 11/27/16 at 09:00 Potassium Chloride (Klor-Con) 10 meq DAILY PO Last administered on 11/29/16 09 :52; Start 11/27/16 at 09:00 Spironolactone (Aldactone) 25 mg DAILY PO Last administered on 11/29/16 09:51 ; Start 11/27/16 at 09:00 Bupropion HCl (Wellbutrin Xl) 150 mg DAILY PO Last administered on 11/29/16 09 :54; Start 11/27/16 at 09:00 Rivastigmine (Exelon) 1 patch DAILY TD Last administered on 11/29/16 10:02; Start 11/27/16 at 09:00 Memantine (Namenda) 5 mg DAILY PO Last administered on 11/29/16 09:56; Start 11/27/16 at 09:00; Stop 11/30/16 at 08:00 Memantine (Namenda) 5 mg BID PO ; Start 11/30/16 at 09:00; Stop 12/03/16 at 08: 00 Memantine (Namenda) 5 mg DAILY PO ; Start 12/03/16 at 09:00; Stop 12/06/16 at 08 :00 Memantine (Namenda) 10 mg HS PO ; Start 12/03/16 at 21:00; Stop 12/06/16 at 20: 00 Memantine (Namenda) 10 mg BID PO ; Start 12/08/16 at 09:00 Active Scripts Active Reported Mirapex (Pramipexole Di-Hcl) 1 Mg Tablet 1 Mg PO PRN DAILY PRN Milk Of Magnesia (Magnesium Hydroxide) 2,400 Mg/10 Ml Oral.susp 2,400 Mg PO PRN QHS PRN Bisacodyl 10 Mg Supp.rect 10 Mg RC PRN DAILY PRN Artificial Tears (Dextran 70/Hypromellose) 1 Each Droperette 1 Each OP PRN TID PRN Zocor (Simvastatin) 40 Mg Tablet 40 Mg PO HS Quetiapine Fumarate 25 Mg Tablet 25 Mg PO BID Clonidine Hcl 0.2 Mg Tablet 0.2 Mg PO HS Spironolactone 25 Mg Tablet 25 Mg PO DAILY Zoloft (Sertraline Hcl) 100 Mg Tablet 200 Mg PO DAILY Klor-Con M10 (Potassium Chloride) 10 Meq Tab.er.prt 10 Meq PO DAILY Miralax (Polyethylene Glycol 3350) 17 Gm Powd.pack 17 Gm PO DAILY [multi+omega-3 gummy] 2 Tab.chew PO DAILY Metoprolol Tartrate 100 Mg Tablet 100 Mg PO BID Lisinopril 20 Mg Tablet 60 Mg PO DAILY Hydrochlorothiazide Tablet (Hydrochlorothiazide) 25 Mg Tablet 25 Mg PO DAILY Fiber Gummies (Inulin) 2 Gm Tab.chew 4 Gm PO DAILY Wellbutrin Xl (Bupropion Hcl) 300 Mg Tab.er.24h 450 Mg PO DAILY Aspir-Low (Aspirin) 81 Mg Tablet.dr 81 Mg PO DAILY Diagnosis: Problems: (1) Anxiety disorder (2) Dementia in Alzheimer's disease with delusions (3) Dementia in Alzheimer's disease with depression (4) Lewy body dementia with behavioral disturbance (5) Impulse control disorder ALBINA ASHBY MD Nov 29, 2016 21:17
[2016-11-30 05:43] VITALS: BP 119/82
[2016-11-30] MEDS: [UNRECOGNIZED DRUG - OTHER] PO SCH (08:44)
[2016-11-30] MEDS: buPROPion XL 150 MG TAB.ER.24H PO SCH (08:44)
[2016-11-30] MEDS: POTASSIUM CHLORIDE 10 MEQ TABLET.ER. PO SCH (08:45)
[2016-11-30] MEDS: CALCIUM POLYCARBOPHIL 625 MG TABLET PO SCH (08:45)
[2016-11-30] MEDS: METOPROLOL TART IMMED RELEASE 50 MG TABLET PO SCH ×2 (08:45→19:42)
[2016-11-30] MEDS: SERTRALINE 100 MG TABLET. PO SCH (08:46)
[2016-11-30] MEDS: POLYETHYLENE GLYCOL 3350 17 GM PACKET. PO SCH (08:46)
[2016-11-30] MEDS: QUEtiapine 25 MG TABLET. PO SCH ×2 (08:46→19:42)
[2016-11-30] MEDS: MEMANTINE 5 MG TABLET. PO SCH ×2 (08:46→19:42)
[2016-11-30] MEDS: SPIRONOLACTONE 25 MG TABLET PO SCH (08:46)
[2016-11-30] MEDS: HYDROCHLOROTHIAZIDE 25 MG TABLET PO SCH (08:46)
[2016-11-30] MEDS: RIVASTIGMINE 4.6MG PATCH. TD SCH (08:46)
[2016-11-30] MEDS: ASPIRIN ENTERIC COATED 81 MG TABLET.DR. PO SCH (08:46)
[2016-11-30 15:45] VITALS: BP 152/94
[2016-11-30] MEDS: SIMVASTATIN 40 MG TABLET. PO SCH (19:42)
[2016-11-30] MEDS: CLONIDINE HCL 0.2 MG TABLET PO SCH (19:42)
[2016-11-30 20:42] VITALS: BP 171/91
--- NOTE | 2016-11-30 21:03 | PDOC ---
Exam Remy Demential Exam: Remy Note: Please also refer to the separate dictated note~for this date of service dictated separately.~Patient seen individually. Discussed the patient with Nursing staff reviewed the chart.~Reviewed interim history and current functioning. Reviewed vital signs,~Labs/ Radiology~and current medications noted below. Continue current treatment with the changes noted in the dictated addendum note Assessment: Vital Signs: Vital Signs Date Time Temp Pulse Resp B/P Pulse Ox O2 Delivery O2 Flow Rate FiO2 11/30/16 20:42 98.6 77 20 171/91 Room Air 11/30/16 15:45 100 I&O Intake and Output 11/30/16 07:00 Intake Total 720 ml Balance 720 ml Intake Oral 720 ml # Bowel Movements 1 Current Medications: Meds: Current Medications Acetaminophen (Tylenol) 650 mg PRN Q6HRS PRN PO PAIN / TEMP; Start 11/25/16 at 18:15 Multi-Ingredient Ointment (Analgesic [place]) 1 bridger PRN QID PRN TP MUSCLE PAIN; Start 11/25/16 at 18:15 Al Hydroxide/Mg Hydroxide (Mylanta Plus Xs) 15 ml PRN AFTMEALHC PRN PO DYSPEPSIA; Start 11/25/16 at 18:15 Aspirin (Aspirin Enteric Coated) 81 mg DAILY PO Last administered on 11/30/16 08:46; Start 11/26/16 at 09:00 Bisacodyl (Dulcolax Supp) 10 mg PRN DAILY PRN RC CONSTIPATION; Start 11/25/16 at 18:15 Clonidine HCl (Catapres) 0.2 mg HS PO Last administered on 11/30/16 19:42; Start 11/25/16 at 21:00 Polyethylene Glycol (miraLAX) 17 gm DAILY PO Last administered on 11/30/16 08: 46; Start 11/26/16 at 09:00 Simvastatin (Zocor) 40 mg HS PO Last administered on 11/30/16 19:42; Start 11/25/16 at 21:00 Artificial Tears (Artificial Tears) 1 drop PRN TID PRN OU DRY EYE; Start at 18:30 Calcium Polycarbophil (Fibercon) 625 mg DAILY PO Last administered on 08:45; Start 11/26/16 at 09:00 Magnesium Hydroxide (Milk Of Magnesia) 2,400 mg PRN QHS PRN PO CONSTIPATION; Start 11/25/16 at 18:30 Metoprolol Tartrate (Lopressor) 100 mg BID PO Last administered on 11/30/16 19 :42; Start 11/25/16 at 21:00 Pramipexole Dihydrochloride (miraPEX) 1 mg PRN QHS PRN PO RESTLESS LEG; Start 11/25/16 at 21:00 Multivitamins (Chewable-Saray) 2 tab DAILY PO Last administered on 11/30/16 08: 44; Start 11/26/16 at 09:00 Bupropion HCl (Wellbutrin Xl) 450 mg DAILY PO Last administered on 11/26/16 09 :13; Start 11/26/16 at 09:00; Stop 11/26/16 at 18:23; Status DC Quetiapine Fumarate (SEROquel) 25 mg BID PO Last administered on 11/30/16 19: 42; Start 11/25/16 at 21:00 Sertraline HCl (Zoloft) 200 mg DAILY PO Last administered on 11/30/16 08:46; Start 11/26/16 at 09:00 Olanzapine (Zyprexa Zydis) 2.5 mg PRN Q2HR PRN PO PSYCHOSIS Last administered on 11/26/16 07:35; Start 11/26/16 at 06:00 Hydrochlorothiazide (Hydrodiuril) 25 mg DAILY PO Last administered on 08:46; Start 11/27/16 at 09:00 Potassium Chloride (Klor-Con) 10 meq DAILY PO Last administered on 11/30/16 08 :45; Start 11/27/16 at 09:00 Spironolactone (Aldactone) 25 mg DAILY PO Last administered on 11/30/16 08:46 ; Start 11/27/16 at 09:00 Bupropion HCl (Wellbutrin Xl) 150 mg DAILY PO Last administered on 11/30/16 08 :44; Start 11/27/16 at 09:00 Rivastigmine (Exelon) 1 patch DAILY TD Last administered on 11/30/16 08:46; Start 11/27/16 at 09:00 Memantine (Namenda) 5 mg DAILY PO Last administered on 11/29/16 09:56; Start 11/27/16 at 09:00; Stop 11/30/16 at 08:00; Status DC Memantine (Namenda) 5 mg BID PO Last administered on 11/30/16 19:42; Start at 09:00; Stop 12/03/16 at 08:00 Memantine (Namenda) 5 mg DAILY PO ; Start 12/03/16 at 09:00; Stop 12/06/16 at 08 :00 Memantine (Namenda) 10 mg HS PO ; Start 12/03/16 at 21:00; Stop 12/06/16 at 20: 00 Memantine (Namenda) 10 mg BID PO ; Start 12/08/16 at 09:00 Active Scripts Active Reported Mirapex (Pramipexole Di-Hcl) 1 Mg Tablet 1 Mg PO PRN DAILY PRN Milk Of Magnesia (Magnesium Hydroxide) 2,400 Mg/10 Ml Oral.susp 2,400 Mg PO PRN QHS PRN Bisacodyl 10 Mg Supp.rect 10 Mg RC PRN DAILY PRN Artificial Tears (Dextran 70/Hypromellose) 1 Each Droperette 1 Each OP PRN TID PRN Zocor (Simvastatin) 40 Mg Tablet 40 Mg PO HS Quetiapine Fumarate 25 Mg Tablet 25 Mg PO BID Clonidine Hcl 0.2 Mg Tablet 0.2 Mg PO HS Spironolactone 25 Mg Tablet 25 Mg PO DAILY Zoloft (Sertraline Hcl) 100 Mg Tablet 200 Mg PO DAILY Klor-Con M10 (Potassium Chloride) 10 Meq Tab.er.prt 10 Meq PO DAILY Miralax (Polyethylene Glycol 3350) 17 Gm Powd.pack 17 Gm PO DAILY [multi+omega-3 gummy] 2 Tab.chew PO DAILY Metoprolol Tartrate 100 Mg Tablet 100 Mg PO BID Lisinopril 20 Mg Tablet 60 Mg PO DAILY Hydrochlorothiazide Tablet (Hydrochlorothiazide) 25 Mg Tablet 25 Mg PO DAILY Fiber Gummies (Inulin) 2 Gm Tab.chew 4 Gm PO DAILY Wellbutrin Xl (Bupropion Hcl) 300 Mg Tab.er.24h 450 Mg PO DAILY Aspir-Low (Aspirin) 81 Mg Tablet.dr 81 Mg PO DAILY Diagnosis: Problems: (1) Anxiety disorder (2) Dementia in Alzheimer's disease with delusions (3) Dementia in Alzheimer's disease with depression (4) Lewy body dementia with behavioral disturbance (5) Impulse control disorder ALBINA ASHBY MD Nov 30, 2016 21:03
--- NOTE | 2016-12-01 01:02 | PN ---
DATE: 11/29/2016 SUBJECTIVE: This is a late entry for date of service 11/29/2016, covers elements not covered in my initial note. Per nursing report, at times the patient appears alert, oriented x 3. He has been calm, social, joking at times with staff. REVIEW OF SYSTEMS: Ambulation impaired, in his wheelchair. No CV, , pulmonary, eye system symptoms on review. MENTAL STATUS EXAM: Oriented to himself and situation. Speech coherent, abstraction fair, computation impaired, language function intact, attention span short. No active suicidal or homicidal ideation. He is very appreciative that I remembered his full name as I visited with him again on 11/29/2016. LABORATORY DATA: Reviewed. IMPRESSION: Major neurocognitive disorder, Lewy body type with delusion, depression, behavioral disturbance; anxiety disorder, unspecified; impulse control disorder, unspecified. PLAN: Continue current psychotropics mentioned in my initial note. Adjust further as clinically indicated. MAN Fei ASHBY MD DR: GHAZAL/lamin JOB#: [id number] / [id number]
[2016-12-01 05:49] VITALS: BP 150/88
[2016-12-01] MEDS: POLYETHYLENE GLYCOL 3350 17 GM PACKET. PO SCH (08:16)
[2016-12-01] MEDS: buPROPion XL 150 MG TAB.ER.24H PO SCH (08:17)
[2016-12-01] MEDS: RIVASTIGMINE 4.6MG PATCH. TD SCH (08:17)
[2016-12-01] MEDS: SERTRALINE 100 MG TABLET. PO SCH (08:17)
[2016-12-01] MEDS: POTASSIUM CHLORIDE 10 MEQ TABLET.ER. PO SCH (08:17)
[2016-12-01] MEDS: [UNRECOGNIZED DRUG - OTHER] PO SCH (08:17)
[2016-12-01] MEDS: CALCIUM POLYCARBOPHIL 625 MG TABLET PO SCH (08:18)
[2016-12-01] MEDS: QUEtiapine 25 MG TABLET. PO SCH ×2 (08:18→19:42)
[2016-12-01] MEDS: METOPROLOL TART IMMED RELEASE 50 MG TABLET PO SCH ×2 (08:18→19:41)
[2016-12-01] MEDS: ASPIRIN ENTERIC COATED 81 MG TABLET.DR. PO SCH (08:19)
[2016-12-01] MEDS: MEMANTINE 5 MG TABLET. PO SCH ×2 (08:19→19:42)
[2016-12-01] MEDS: SPIRONOLACTONE 25 MG TABLET PO SCH (08:19)
[2016-12-01] MEDS: HYDROCHLOROTHIAZIDE 25 MG TABLET PO SCH (08:19)
[2016-12-01 15:38] VITALS: BP 116/76
[2016-12-01] MEDS: CLONIDINE HCL 0.2 MG TABLET PO SCH (19:41)
[2016-12-01] MEDS: SIMVASTATIN 40 MG TABLET. PO SCH (19:42)
--- NOTE | 2016-12-01 21:58 | PDOC ---
Exam Remy Demential Exam: Remy Note: Please also refer to the separate dictated note~for this date of service dictated separately.~Patient seen individually. Discussed the patient with Nursing staff reviewed the chart.~Reviewed interim history and current functioning. Reviewed vital signs,~Labs/ Radiology~and current medications noted below. Continue current treatment with the changes noted in the dictated addendum note Assessment: Vital Signs: Vital Signs Date Time Temp Pulse Resp B/P Pulse Ox O2 Delivery O2 Flow Rate FiO2 12/01/16 19:41 62 142/87 12/01/16 15:38 97.1 16 96 Room Air I&O Intake and Output 12/01/16 07:00 Intake Total 720 ml Balance 720 ml Intake Oral 720 ml Current Medications: Meds: Current Medications Acetaminophen (Tylenol) 650 mg PRN Q6HRS PRN PO PAIN / TEMP; Start 11/25/16 at 18:15 Multi-Ingredient Ointment (Analgesic [place]) 1 bridger PRN QID PRN TP MUSCLE PAIN; Start 11/25/16 at 18:15 Al Hydroxide/Mg Hydroxide (Mylanta Plus Xs) 15 ml PRN AFTMEALHC PRN PO DYSPEPSIA; Start 11/25/16 at 18:15 Aspirin (Aspirin Enteric Coated) 81 mg DAILY PO Last administered on 12/01/16 08:19; Start 11/26/16 at 09:00 Bisacodyl (Dulcolax Supp) 10 mg PRN DAILY PRN RC CONSTIPATION; Start 11/25/16 at 18:15 Clonidine HCl (Catapres) 0.2 mg HS PO Last administered on 12/01/16 19:41; Start 11/25/16 at 21:00 Polyethylene Glycol (miraLAX) 17 gm DAILY PO Last administered on 12/01/16 08: 16; Start 11/26/16 at 09:00 Simvastatin (Zocor) 40 mg HS PO Last administered on 12/01/16 19:42; Start 11/25/16 at 21:00 Artificial Tears (Artificial Tears) 1 drop PRN TID PRN OU DRY EYE; Start at 18:30 Calcium Polycarbophil (Fibercon) 625 mg DAILY PO Last administered on 08:18; Start 11/26/16 at 09:00 Magnesium Hydroxide (Milk Of Magnesia) 2,400 mg PRN QHS PRN PO CONSTIPATION; Start 11/25/16 at 18:30 Metoprolol Tartrate (Lopressor) 100 mg BID PO Last administered on 12/01/16 19 :41; Start 11/25/16 at 21:00 Pramipexole Dihydrochloride (miraPEX) 1 mg PRN QHS PRN PO RESTLESS LEG; Start 11/25/16 at 21:00 Multivitamins (Chewable-Saray) 2 tab DAILY PO Last administered on 12/01/16 08: 17; Start 11/26/16 at 09:00 Bupropion HCl (Wellbutrin Xl) 450 mg DAILY PO Last administered on 11/26/16 09 :13; Start 11/26/16 at 09:00; Stop 11/26/16 at 18:23; Status DC Quetiapine Fumarate (SEROquel) 25 mg BID PO Last administered on 12/01/16 19: 42; Start 11/25/16 at 21:00 Sertraline HCl (Zoloft) 200 mg DAILY PO Last administered on 12/01/16 08:17; Start 11/26/16 at 09:00 Olanzapine (Zyprexa Zydis) 2.5 mg PRN Q2HR PRN PO PSYCHOSIS Last administered on 11/26/16 07:35; Start 11/26/16 at 06:00 Hydrochlorothiazide (Hydrodiuril) 25 mg DAILY PO Last administered on 08:19; Start 11/27/16 at 09:00 Potassium Chloride (Klor-Con) 10 meq DAILY PO Last administered on 12/01/16 08 :17; Start 11/27/16 at 09:00 Spironolactone (Aldactone) 25 mg DAILY PO Last administered on 12/01/16 08:19 ; Start 11/27/16 at 09:00 Bupropion HCl (Wellbutrin Xl) 150 mg DAILY PO Last administered on 12/01/16 08 :17; Start 11/27/16 at 09:00 Rivastigmine (Exelon) 1 patch DAILY TD Last administered on 12/01/16 08:17; Start 11/27/16 at 09:00 Memantine (Namenda) 5 mg DAILY PO Last administered on 11/29/16 09:56; Start 11/27/16 at 09:00; Stop 11/30/16 at 08:00; Status DC Memantine (Namenda) 5 mg BID PO Last administered on 12/01/16 19:42; Start at 09:00; Stop 12/03/16 at 08:00 Memantine (Namenda) 5 mg DAILY PO ; Start 12/03/16 at 09:00; Stop 12/06/16 at 08 :00 Memantine (Namenda) 10 mg HS PO ; Start 12/03/16 at 21:00; Stop 12/06/16 at 20: 00 Memantine (Namenda) 10 mg BID PO ; Start 12/08/16 at 09:00 Active Scripts Active Reported Mirapex (Pramipexole Di-Hcl) 1 Mg Tablet 1 Mg PO PRN DAILY PRN Milk Of Magnesia (Magnesium Hydroxide) 2,400 Mg/10 Ml Oral.susp 2,400 Mg PO PRN QHS PRN Bisacodyl 10 Mg Supp.rect 10 Mg RC PRN DAILY PRN Artificial Tears (Dextran 70/Hypromellose) 1 Each Droperette 1 Each OP PRN TID PRN Zocor (Simvastatin) 40 Mg Tablet 40 Mg PO HS Quetiapine Fumarate 25 Mg Tablet 25 Mg PO BID Clonidine Hcl 0.2 Mg Tablet 0.2 Mg PO HS Spironolactone 25 Mg Tablet 25 Mg PO DAILY Zoloft (Sertraline Hcl) 100 Mg Tablet 200 Mg PO DAILY Klor-Con M10 (Potassium Chloride) 10 Meq Tab.er.prt 10 Meq PO DAILY Miralax (Polyethylene Glycol 3350) 17 Gm Powd.pack 17 Gm PO DAILY [multi+omega-3 gummy] 2 Tab.chew PO DAILY Metoprolol Tartrate 100 Mg Tablet 100 Mg PO BID Lisinopril 20 Mg Tablet 60 Mg PO DAILY Hydrochlorothiazide Tablet (Hydrochlorothiazide) 25 Mg Tablet 25 Mg PO DAILY Fiber Gummies (Inulin) 2 Gm Tab.chew 4 Gm PO DAILY Wellbutrin Xl (Bupropion Hcl) 300 Mg Tab.er.24h 450 Mg PO DAILY Aspir-Low (Aspirin) 81 Mg Tablet.dr 81 Mg PO DAILY Diagnosis: Problems: (1) Impulse control disorder (2) Lewy body dementia with behavioral disturbance (3) Dementia in Alzheimer's disease with depression (4) Dementia in Alzheimer's disease with delusions (5) Anxiety disorder ALBINA ASHBY MD Dec 01, 2016 21:58
--- NOTE | 2016-12-01 22:28 | PN ---
DATE: 11/30/2016 PSYCHIATRIC PROGRESS NOTE This late entry for 11/30/2016 covers elements not covered in my initial note. SUBJECTIVE: The patient is quite hateful morning of 11/30/2016 per nursing report. He was pushing other patients, resistive to care, much more agitated in the morning with nursing staff. However, the rest of the day is done better. REVIEW OF SYSTEMS: Ambulation impaired in his wheelchair. No CV, , Pulmonary, Eye system symptoms on review. He is hard of hearing. MENTAL STATUS EXAM: Oriented to himself and situation. Speech coherent. He is verbal. Abstraction fair. Computation impaired. Language function intact. Attention span short. Mood and affect, intermittently labile. LABORATORY DATA: Reviewed. IMPRESSION: Major neurocognitive disorder, Lewy body type with delusion, depression, behavioral disturbance. Rest diagnoses unchanged. PLAN: Maintain Zoloft 200 mg a day. Wellbutrin 150 mg a day which is a reduction from a prior dosage. Seroquel 25 b.i.d. Zyprexa p.r.n. Exelon patch 4.6 mg a day, will need to be increased in due course. Maintain Namenda, increasing to 10 b.i.d. Adjust further as clinically indicated. MAN Fei ASHBY MD DR: GHAZAL/lamin JOB#: [id number] / [id number]
--- NOTE | 2016-12-01 23:05 | PN ---
DATE: 12/01/2016 This note covers elements not covered in my initial note of 12/01/2016. This note is to clarify that I had initially intended to start the patient on Aricept as a cholinesterase inhibitor given his diagnosis of Lewy body dementia, but after further review, decided to initiate Exelon patch as mentioned previously. I feel the Exelon would be a better choice than Aricept for the patient clinically. ALBINA ASHBY MD DR: GHAZAL/lamin JOB#: [id number] / [id number]
[2016-12-02 05:34] VITALS: BP 130/81
[2016-12-02] MEDS: POLYETHYLENE GLYCOL 3350 17 GM PACKET. PO SCH (08:36)
[2016-12-02] MEDS: MEMANTINE 5 MG TABLET. PO SCH ×2 (08:36→19:43)
[2016-12-02] MEDS: SERTRALINE 100 MG TABLET. PO SCH (08:36)
[2016-12-02] MEDS: [UNRECOGNIZED DRUG - OTHER] PO SCH (08:37)
[2016-12-02] MEDS: CALCIUM POLYCARBOPHIL 625 MG TABLET PO SCH (08:37)
[2016-12-02] MEDS: METOPROLOL TART IMMED RELEASE 50 MG TABLET PO SCH ×2 (08:37→19:43)
[2016-12-02] MEDS: POTASSIUM CHLORIDE 10 MEQ TABLET.ER. PO SCH (08:37)
[2016-12-02] MEDS: SPIRONOLACTONE 25 MG TABLET PO SCH (08:37)
[2016-12-02] MEDS: buPROPion XL 150 MG TAB.ER.24H PO SCH (08:37)
[2016-12-02] MEDS: QUEtiapine 25 MG TABLET. PO SCH ×2 (08:37→19:43)
[2016-12-02] MEDS: ASPIRIN ENTERIC COATED 81 MG TABLET.DR. PO SCH (08:37)
[2016-12-02] MEDS: HYDROCHLOROTHIAZIDE 25 MG TABLET PO SCH (08:37)
[2016-12-02] MEDS: RIVASTIGMINE 4.6MG PATCH. TD SCH (08:38)
[2016-12-02 15:33] VITALS: BP 124/80
[2016-12-02] MEDS: SIMVASTATIN 40 MG TABLET. PO SCH (19:42)
[2016-12-02] MEDS: CLONIDINE HCL 0.2 MG TABLET PO SCH (19:43)
--- NOTE | 2016-12-02 21:04 | PDOC ---
Exam Remy Demential Exam: Remy Note: Please also refer to the separate dictated note~for this date of service dictated separately.~Patient seen individually. Discussed the patient with Nursing staff reviewed the chart.~Reviewed interim history and current functioning. Reviewed vital signs,~Labs/ Radiology~and current medications noted below. Continue current treatment with the changes noted in the dictated addendum note Assessment: Vital Signs: Vital Signs Date Time Temp Pulse Resp B/P Pulse Ox O2 Delivery O2 Flow Rate FiO2 12/02/16 19:43 69 122/78 12/02/16 15:33 97.6 18 98 12/01/16 15:38 Room Air I&O Intake and Output 12/02/16 07:00 Intake Total 1080 ml Balance 1080 ml Intake Oral 1080 ml # Bowel Movements 1 Current Medications: Meds: Current Medications Acetaminophen (Tylenol) 650 mg PRN Q6HRS PRN PO PAIN / TEMP; Start 11/25/16 at 18:15 Multi-Ingredient Ointment (Analgesic [place]) 1 bridger PRN QID PRN TP MUSCLE PAIN; Start 11/25/16 at 18:15 Al Hydroxide/Mg Hydroxide (Mylanta Plus Xs) 15 ml PRN AFTMEALHC PRN PO DYSPEPSIA; Start 11/25/16 at 18:15 Aspirin (Aspirin Enteric Coated) 81 mg DAILY PO Last administered on 12/02/16 08:37; Start 11/26/16 at 09:00 Bisacodyl (Dulcolax Supp) 10 mg PRN DAILY PRN RC CONSTIPATION; Start 11/25/16 at 18:15 Clonidine HCl (Catapres) 0.2 mg HS PO Last administered on 12/02/16 19:43; Start 11/25/16 at 21:00 Polyethylene Glycol (miraLAX) 17 gm DAILY PO Last administered on 12/02/16 08: 36; Start 11/26/16 at 09:00 Simvastatin (Zocor) 40 mg HS PO Last administered on 12/02/16 19:42; Start 11/25/16 at 21:00 Artificial Tears (Artificial Tears) 1 drop PRN TID PRN OU DRY EYE; Start at 18:30 Calcium Polycarbophil (Fibercon) 625 mg DAILY PO Last administered on 08:37; Start 11/26/16 at 09:00 Magnesium Hydroxide (Milk Of Magnesia) 2,400 mg PRN QHS PRN PO CONSTIPATION; Start 11/25/16 at 18:30 Metoprolol Tartrate (Lopressor) 100 mg BID PO Last administered on 12/02/16 19 :43; Start 11/25/16 at 21:00 Pramipexole Dihydrochloride (miraPEX) 1 mg PRN QHS PRN PO RESTLESS LEG; Start 11/25/16 at 21:00 Multivitamins (Chewable-Saray) 2 tab DAILY PO Last administered on 12/02/16 08: 37; Start 11/26/16 at 09:00 Bupropion HCl (Wellbutrin Xl) 450 mg DAILY PO Last administered on 11/26/16 09 :13; Start 11/26/16 at 09:00; Stop 11/26/16 at 18:23; Status DC Quetiapine Fumarate (SEROquel) 25 mg BID PO Last administered on 12/02/16 19: 43; Start 11/25/16 at 21:00 Sertraline HCl (Zoloft) 200 mg DAILY PO Last administered on 12/02/16 08:36; Start 11/26/16 at 09:00 Olanzapine (Zyprexa Zydis) 2.5 mg PRN Q2HR PRN PO PSYCHOSIS Last administered on 11/26/16 07:35; Start 11/26/16 at 06:00 Hydrochlorothiazide (Hydrodiuril) 25 mg DAILY PO Last administered on 08:37; Start 11/27/16 at 09:00 Potassium Chloride (Klor-Con) 10 meq DAILY PO Last administered on 12/02/16 08 :37; Start 11/27/16 at 09:00 Spironolactone (Aldactone) 25 mg DAILY PO Last administered on 12/02/16 08:37 ; Start 11/27/16 at 09:00 Bupropion HCl (Wellbutrin Xl) 150 mg DAILY PO Last administered on 12/02/16 08 :37; Start 11/27/16 at 09:00 Rivastigmine (Exelon) 1 patch DAILY TD Last administered on 12/02/16 08:38; Start 11/27/16 at 09:00 Memantine (Namenda) 5 mg DAILY PO Last administered on 11/29/16 09:56; Start 11/27/16 at 09:00; Stop 11/30/16 at 08:00; Status DC Memantine (Namenda) 5 mg BID PO Last administered on 12/02/16 19:43; Start at 09:00; Stop 12/03/16 at 08:00 Memantine (Namenda) 5 mg DAILY PO ; Start 12/03/16 at 09:00; Stop 12/06/16 at 08 :00 Memantine (Namenda) 10 mg HS PO ; Start 12/03/16 at 21:00; Stop 12/06/16 at 20: 00 Memantine (Namenda) 10 mg BID PO ; Start 12/08/16 at 09:00 Active Scripts Active Reported Mirapex (Pramipexole Di-Hcl) 1 Mg Tablet 1 Mg PO PRN DAILY PRN Milk Of Magnesia (Magnesium Hydroxide) 2,400 Mg/10 Ml Oral.susp 2,400 Mg PO PRN QHS PRN Bisacodyl 10 Mg Supp.rect 10 Mg RC PRN DAILY PRN Artificial Tears (Dextran 70/Hypromellose) 1 Each Droperette 1 Each OP PRN TID PRN Zocor (Simvastatin) 40 Mg Tablet 40 Mg PO HS Quetiapine Fumarate 25 Mg Tablet 25 Mg PO BID Clonidine Hcl 0.2 Mg Tablet 0.2 Mg PO HS Spironolactone 25 Mg Tablet 25 Mg PO DAILY Zoloft (Sertraline Hcl) 100 Mg Tablet 200 Mg PO DAILY Klor-Con M10 (Potassium Chloride) 10 Meq Tab.er.prt 10 Meq PO DAILY Miralax (Polyethylene Glycol 3350) 17 Gm Powd.pack 17 Gm PO DAILY [multi+omega-3 gummy] 2 Tab.chew PO DAILY Metoprolol Tartrate 100 Mg Tablet 100 Mg PO BID Lisinopril 20 Mg Tablet 60 Mg PO DAILY Hydrochlorothiazide Tablet (Hydrochlorothiazide) 25 Mg Tablet 25 Mg PO DAILY Fiber Gummies (Inulin) 2 Gm Tab.chew 4 Gm PO DAILY Wellbutrin Xl (Bupropion Hcl) 300 Mg Tab.er.24h 450 Mg PO DAILY Aspir-Low (Aspirin) 81 Mg Tablet.dr 81 Mg PO DAILY Diagnosis: Problems: (1) Anxiety disorder (2) Dementia in Alzheimer's disease with delusions (3) Dementia in Alzheimer's disease with depression (4) Lewy body dementia with behavioral disturbance (5) Impulse control disorder ALBINA ASHBY MD Dec 02, 2016 21:04
[2016-12-03 05:55] VITALS: BP 136/91
[2016-12-03 07:09] LABS: BASO % 1 % (0-3); EOS # 0.1 x10^3/uL (0.0-0.7); EOS % 2 % (0-3); HEMATOCRIT 36.3 % (39.0-53.0); LYMPH # 1.4 x10^3/uL (1.0-4.8); LYMPH % 26 % (24-48); MEAN CORPUSCULAR HEMOGLOBIN 30 pg (25-35); MEAN CORPUSCULAR HGB CONC 33 g/dL (31-37); MEAN CORPUSCULAR VOLUME 91 fL (79-100); MONO # 0.5 x10^3/uL (0.0-1.1); MONO % 9 % (0-9); NEUT # 3.4 x10^3uL (1.8-7.7); NEUT % 63 % (31-73); PLATELET COUNT 117 x10^3/uL (140-400); RED BLOOD COUNT 3.97 x10^6/uL (4.30-5.70); RED CELL DISTRIBUTION WIDTH 14.6 % (11.5-14.5); WHITE BLOOD COUNT 5.4 x10^3/uL (4.0-11.0)
[2016-12-03 07:24] LABS: ALBUMIN 3.1 g/dL (3.4-5.0); ALBUMIN/GLOBULIN RATIO 1.1 (1.0-1.7); CALCIUM 8.6 mg/dL (8.5-10.1); CREATININE 1.1 mg/dL (0.7-1.3); TOTAL BILIRUBIN 0.3 mg/dL (0.2-1.0); TOTAL PROTEIN 5.9 g/dL (6.4-8.2)
--- NOTE | 2016-12-03 09:31 | PN ---
DATE: 12/02/2016 PSYCHIATRIC PROGRESS NOTE This is a late entry of 12/02/2016 covers elements not covered in my initial note. SUBJECTIVE: The patient was staffed at the treatment team meeting with the entire team morning of 12/02/2016 with patient's daughter, Pineda attending. Reviewed the patient's history, diagnosis, medications. I have also reviewed approximately 6 page document received from [facility] by Dr. Roscoe Cabrera, psychiatrist and the final diagnosis with dementia Lewy body. We reviewed the patient's history at length with the daughter. At times, the patient mixes his grandchildren and who they belonged to out of his children refers to them by different names, but at other times seems fairly coherent. REVIEW OF SYSTEMS: Hard of hearing, impaired ambulation in his wheelchair. No CV, , pulmonary, eye, ENT system symptoms on review. MENTAL STATUS EXAM: Oriented to himself and situation. Speech coherent has some latency, abstraction fair, computation impaired, language function intact, attention span short, mood and affect, lability is improved. He is calmer. LABORATORY DATA: Reviewed. IMPRESSION: Major neurocognitive disorder Lewy body with delusion, depression, behavioral disturbance. Rest diagnosis unchanged. PLAN: Maintain Zoloft, Wellbutrin, Seroquel, Exelon patch, and Namenda. Adjust further as clinically indicated. Discussed all this at length with the daughter and received informed consent. MAN Fei ASHBY MD DR: GHAZAL/lamin JOB#: [id number] / [id number]
[2016-12-03] MEDS: RIVASTIGMINE 4.6MG PATCH. TD SCH (10:07)
[2016-12-03] MEDS: POLYETHYLENE GLYCOL 3350 17 GM PACKET. PO SCH (10:07)
[2016-12-03] MEDS: HYDROCHLOROTHIAZIDE 25 MG TABLET PO SCH (10:08)
[2016-12-03] MEDS: [UNRECOGNIZED DRUG - OTHER] PO SCH (10:08)
[2016-12-03] MEDS: SPIRONOLACTONE 25 MG TABLET PO SCH (10:08)
[2016-12-03] MEDS: ASPIRIN ENTERIC COATED 81 MG TABLET.DR. PO SCH (10:09)
[2016-12-03] MEDS: METOPROLOL TART IMMED RELEASE 50 MG TABLET PO SCH ×2 (10:09→21:23)
[2016-12-03] MEDS: SERTRALINE 100 MG TABLET. PO SCH (10:09)
[2016-12-03] MEDS: QUEtiapine 25 MG TABLET. PO SCH ×2 (10:09→21:23)
[2016-12-03] MEDS: buPROPion XL 150 MG TAB.ER.24H PO SCH (10:09)
[2016-12-03] MEDS: CALCIUM POLYCARBOPHIL 625 MG TABLET PO SCH (10:09)
[2016-12-03] MEDS: MEMANTINE 5 MG TABLET. PO SCH (10:09)
[2016-12-03] MEDS: POTASSIUM CHLORIDE 10 MEQ TABLET.ER. PO SCH (10:10)
--- NOTE | 2016-12-03 12:57 | PN ---
DATE: 12/01/2016 SUBJECTIVE: This is a late entry for 12/01/2016, covers elements not covered in my initial note. Per nursing report, the patient did reasonably well the morning of 12/01/2016. Calm, cooperative, and little more restless, and anxious in the afternoon, but redirectable. REVIEW OF SYSTEMS: Hard of hearing, in a wheelchair with impaired ambulation. No CV, , pulmonary, or eye system symptoms on review. MENTAL STATUS EXAM: Oriented to himself and situation. Speech coherent, abstraction fair, computation impaired, language function intact, attention span short, mood and affect lability is improved along with improved irritability. LABORATORY DATA: Reviewed. IMPRESSION: Major neurocognitive disorder Lewy body type with delusion, depression, behavioral disturbance; anxiety disorder, unspecified; and impulse control disorder, unspecified. PLAN: Continue Zoloft 200 mg a day and Wellbutrin 150 mg a day, which is a reduction from 450 mg a day. Maintain Seroquel, Zyprexa, Exelon patch, and Namenda gradually increasing dosage. MAN Fei ASHBY MD DR: GHAZAL/lamin JOB#: [id number] / [id number]
[2016-12-03 15:37] VITALS: BP 150/80
--- NOTE | 2016-12-03 21:07 | PDOC ---
Exam Remy Demential Exam: Remy Note: Please also refer to the separate dictated note~for this date of service dictated separately.~Patient seen individually. Discussed the patient with Nursing staff reviewed the chart.~Reviewed interim history and current functioning. Reviewed vital signs,~Labs/ Radiology~and current medications noted below. Continue current treatment with the changes noted in the dictated addendum note Assessment: Vital Signs: Vital Signs Date Time Temp Pulse Resp B/P Pulse Ox O2 Delivery O2 Flow Rate FiO2 12/03/16 15:37 97.2 73 20 150/80 99 12/03/16 05:55 BiPAP/CPAP I&O Intake and Output 12/03/16 07:00 Intake Total 960 ml Balance 960 ml Intake Oral 960 ml Labs: Laboratory Tests Test 12/03/16 06:19 White Blood Count 5.4x10^3/uL (4.0-11.0) Red Blood Count 3.97x10^6/uL (4.30-5.70) L Hemoglobin 12.0g/dL (13.0-17.5) L Hematocrit 36.3% (39.0-53.0) L Mean Corpuscular Volume 91fL (79-100) Mean Corpuscular Hemoglobin 30pg (25-35) Mean Corpuscular Hemoglobin Concent 33g/dL (31-37) Red Cell Distribution Width 14.6% (11.5-14.5) H Platelet Count 117x10^3/uL (140-400) L Neutrophils (%) (Auto) 63% (31-73) Lymphocytes (%) (Auto) 26% (24-48) Monocytes (%) (Auto) 9% (0-9) Eosinophils (%) (Auto) 2% (0-3) Basophils (%) (Auto) 1% (0-3) Neutrophils # (Auto) 3.4x10^3uL (1.8-7.7) Lymphocytes # (Auto) 1.4x10^3/uL (1.0-4.8) Monocytes # (Auto) 0.5x10^3/uL (0.0-1.1) Eosinophils # (Auto) 0.1x10^3/uL (0.0-0.7) Basophils # (Auto) 0.0x10^3/uL (0.0-0.2) Sodium Level 141mmol/L (136-145) Potassium Level 4.0mmol/L (3.5-5.1) Chloride Level 105mmol/L (98-107) Carbon Dioxide Level 34mmol/L (21-32) H Anion Gap 2 (6-14) L Blood Urea Nitrogen 26mg/dL (8-26) Creatinine 1.1mg/dL (0.7-1.3) Estimated GFR (Cockcroft-Gault) 66.0 BUN/Creatinine Ratio 24 (6-20) H Glucose Level 100mg/dL (70-99) H Calcium Level 8.6mg/dL (8.5-10.1) Total Bilirubin 0.3mg/dL (0.2-1.0) Aspartate Amino Transferase (AST) 23U/L (15-37) Alanine Aminotransferase (ALT) 33U/L (16-63) Alkaline Phosphatase 62U/L (46-116) Total Protein 5.9g/dL (6.4-8.2) L Albumin 3.1g/dL (3.4-5.0) L Albumin/Globulin Ratio 1.1 (1.0-1.7) Current Medications: Meds: Current Medications Acetaminophen (Tylenol) 650 mg PRN Q6HRS PRN PO PAIN / TEMP; Start 11/25/16 at 18:15 Multi-Ingredient Ointment (Analgesic [place]) 1 bridger PRN QID PRN TP MUSCLE PAIN; Start 11/25/16 at 18:15 Al Hydroxide/Mg Hydroxide (Mylanta Plus Xs) 15 ml PRN AFTMEALHC PRN PO DYSPEPSIA; Start 11/25/16 at 18:15 Aspirin (Aspirin Enteric Coated) 81 mg DAILY PO Last administered on 12/03/16 10:09; Start 11/26/16 at 09:00 Bisacodyl (Dulcolax Supp) 10 mg PRN DAILY PRN RC CONSTIPATION; Start 11/25/16 at 18:15 Clonidine HCl (Catapres) 0.2 mg HS PO Last administered on 12/02/16 19:43; Start 11/25/16 at 21:00 Polyethylene Glycol (miraLAX) 17 gm DAILY PO Last administered on 12/03/16 10: 07; Start 11/26/16 at 09:00 Simvastatin (Zocor) 40 mg HS PO Last administered on 12/02/16 19:42; Start 11/25/16 at 21:00 Artificial Tears (Artificial Tears) 1 drop PRN TID PRN OU DRY EYE; Start at 18:30 Calcium Polycarbophil (Fibercon) 625 mg DAILY PO Last administered on 10:09; Start 11/26/16 at 09:00 Magnesium Hydroxide (Milk Of Magnesia) 2,400 mg PRN QHS PRN PO CONSTIPATION; Start 11/25/16 at 18:30 Metoprolol Tartrate (Lopressor) 100 mg BID PO Last administered on 12/03/16 10 :09; Start 11/25/16 at 21:00 Pramipexole Dihydrochloride (miraPEX) 1 mg PRN QHS PRN PO RESTLESS LEG; Start 11/25/16 at 21:00 Multivitamins (Chewable-Saray) 2 tab DAILY PO Last administered on 12/03/16 10: 08; Start 11/26/16 at 09:00 Bupropion HCl (Wellbutrin Xl) 450 mg DAILY PO Last administered on 11/26/16 09 :13; Start 11/26/16 at 09:00; Stop 11/26/16 at 18:23; Status DC Quetiapine Fumarate (SEROquel) 25 mg BID PO Last administered on 12/03/16 10: 09; Start 11/25/16 at 21:00 Sertraline HCl (Zoloft) 200 mg DAILY PO Last administered on 12/03/16 10:09; Start 11/26/16 at 09:00 Olanzapine (Zyprexa Zydis) 2.5 mg PRN Q2HR PRN PO PSYCHOSIS Last administered on 11/26/16 07:35; Start 11/26/16 at 06:00 Hydrochlorothiazide (Hydrodiuril) 25 mg DAILY PO Last administered on 10:08; Start 11/27/16 at 09:00 Potassium Chloride (Klor-Con) 10 meq DAILY PO Last administered on 12/03/16 10 :10; Start 11/27/16 at 09:00 Spironolactone (Aldactone) 25 mg DAILY PO Last administered on 12/03/16 10:08 ; Start 11/27/16 at 09:00 Bupropion HCl (Wellbutrin Xl) 150 mg DAILY PO Last administered on 12/03/16 10 :09; Start 11/27/16 at 09:00 Rivastigmine (Exelon) 1 patch DAILY TD Last administered on 12/03/16 10:07; Start 11/27/16 at 09:00 Memantine (Namenda) 5 mg DAILY PO Last administered on 11/29/16 09:56; Start 11/27/16 at 09:00; Stop 11/30/16 at 08:00; Status DC Memantine (Namenda) 5 mg BID PO Last administered on 12/02/16 19:43; Start at 09:00; Stop 12/03/16 at 08:00; Status DC Memantine (Namenda) 5 mg DAILY PO Last administered on 12/03/16 10:09; Start 12/03/16 at 09:00; Stop 12/06/16 at 08:00 Memantine (Namenda) 10 mg HS PO ; Start 12/03/16 at 21:00; Stop 12/06/16 at 20: 00 Memantine (Namenda) 10 mg BID PO ; Start 12/08/16 at 09:00 Active Scripts Active Reported Mirapex (Pramipexole Di-Hcl) 1 Mg Tablet 1 Mg PO PRN DAILY PRN Milk Of Magnesia (Magnesium Hydroxide) 2,400 Mg/10 Ml Oral.susp 2,400 Mg PO PRN QHS PRN Bisacodyl 10 Mg Supp.rect 10 Mg RC PRN DAILY PRN Artificial Tears (Dextran 70/Hypromellose) 1 Each Droperette 1 Each OP PRN TID PRN Zocor (Simvastatin) 40 Mg Tablet 40 Mg PO HS Quetiapine Fumarate 25 Mg Tablet 25 Mg PO BID Clonidine Hcl 0.2 Mg Tablet 0.2 Mg PO HS Spironolactone 25 Mg Tablet 25 Mg PO DAILY Zoloft (Sertraline Hcl) 100 Mg Tablet 200 Mg PO DAILY Klor-Con M10 (Potassium Chloride) 10 Meq Tab.er.prt 10 Meq PO DAILY Miralax (Polyethylene Glycol 3350) 17 Gm Powd.pack 17 Gm PO DAILY [multi+omega-3 gummy] 2 Tab.chew PO DAILY Metoprolol Tartrate 100 Mg Tablet 100 Mg PO BID Lisinopril 20 Mg Tablet 60 Mg PO DAILY Hydrochlorothiazide Tablet (Hydrochlorothiazide) 25 Mg Tablet 25 Mg PO DAILY Fiber Gummies (Inulin) 2 Gm Tab.chew 4 Gm PO DAILY Wellbutrin Xl (Bupropion Hcl) 300 Mg Tab.er.24h 450 Mg PO DAILY Aspir-Low (Aspirin) 81 Mg Tablet.dr 81 Mg PO DAILY Diagnosis: Problems: (1) Anxiety disorder (2) Dementia in Alzheimer's disease with delusions (3) Dementia in Alzheimer's disease with depression (4) Lewy body dementia with behavioral disturbance (5) Impulse control disorder ALBINA ASHBY MD Dec 03, 2016 21:07
[2016-12-03] MEDS: SIMVASTATIN 40 MG TABLET. PO SCH (21:23)
[2016-12-03] MEDS: CLONIDINE HCL 0.2 MG TABLET PO SCH (21:24)
[2016-12-03] MEDS: MEMANTINE 10 MG TABLET. PO SCH (21:25)
--- NOTE | 2016-12-03 22:04 | RAD ---
PROCEDURE CT head without intravenous contrast. HISTORY Fall, trauma to the head. Headache. TECHNIQUE Axial images are obtained of the head from the skull base through the vertex without IV contrast Exposure: One or more of the following individualized dose reduction techniques were utilized for this examination: 1. Automated exposure control. 2. Adjustment of the mA and/or kV according to patient size. 3. Use of iterative reconstruction technique. COMPARISON None. FINDINGS The ventricles are appropriate in size, shape, and location for the patient's age.No obvious intracranial mass, mass-effect, midline shift, hemorrhage or obvious acute infarction is identified.Basilar cisterns are patent. Bone windows demonstrate no acute calvarial abnormality.The visualized paranasal sinuses appear clear. IMPRESSION No acute intracranial process. Please note that CT can be relatively insensitive to acute ischemic infarction for up to 24 hours after symptom onset. Electronically signed by: Baljinder Hanna MD (Dec 03, 2016 22:03:17)
[2016-12-04 06:00] VITALS: BP 148/91
[2016-12-04] MEDS: CALCIUM POLYCARBOPHIL 625 MG TABLET PO SCH (07:59)
[2016-12-04] MEDS: buPROPion XL 150 MG TAB.ER.24H PO SCH (07:59)
[2016-12-04] MEDS: ASPIRIN ENTERIC COATED 81 MG TABLET.DR. PO SCH (07:59)
[2016-12-04] MEDS: RIVASTIGMINE 4.6MG PATCH. TD SCH (07:59)
[2016-12-04] MEDS: SPIRONOLACTONE 25 MG TABLET PO SCH (07:59)
[2016-12-04] MEDS: POLYETHYLENE GLYCOL 3350 17 GM PACKET. PO SCH (07:59)
[2016-12-04] MEDS: POTASSIUM CHLORIDE 10 MEQ TABLET.ER. PO SCH (08:00)
[2016-12-04] MEDS: QUEtiapine 25 MG TABLET. PO SCH ×2 (08:00→19:46)
[2016-12-04] MEDS: MEMANTINE 5 MG TABLET. PO SCH (08:00)
[2016-12-04] MEDS: HYDROCHLOROTHIAZIDE 25 MG TABLET PO SCH (08:00)
[2016-12-04] MEDS: SERTRALINE 100 MG TABLET. PO SCH (08:00)
[2016-12-04] MEDS: METOPROLOL TART IMMED RELEASE 50 MG TABLET PO SCH ×2 (08:00→19:46)
[2016-12-04] MEDS: [UNRECOGNIZED DRUG - OTHER] PO SCH (08:02)
--- NOTE | 2016-12-04 09:47 | PDOC ---
Exam Remy Demential Exam: Remy Note: Please also refer to the separate dictated note~for this date of service dictated separately.~Patient seen individually. Discussed the patient with Nursing staff reviewed the chart.~Reviewed interim history and current functioning. Reviewed vital signs,~Labs/ Radiology~and current medications noted below. Continue current treatment with the changes noted in the dictated addendum note Assessment: Vital Signs: Vital Signs Date Time Temp Pulse Resp B/P Pulse Ox O2 Delivery O2 Flow Rate FiO2 12/04/16 08:00 72 148/91 12/04/16 06:00 97.6 16 98 12/03/16 05:55 BiPAP/CPAP I&O Intake and Output 12/04/16 07:00 Intake Total 960 ml Balance 960 ml Intake Oral 960 ml # Bowel Movements 2 Current Medications: Meds: Current Medications Acetaminophen (Tylenol) 650 mg PRN Q6HRS PRN PO PAIN / TEMP; Start 11/25/16 at 18:15 Multi-Ingredient Ointment (Analgesic [place]) 1 bridger PRN QID PRN TP MUSCLE PAIN; Start 11/25/16 at 18:15 Al Hydroxide/Mg Hydroxide (Mylanta Plus Xs) 15 ml PRN AFTMEALHC PRN PO DYSPEPSIA; Start 11/25/16 at 18:15 Aspirin (Aspirin Enteric Coated) 81 mg DAILY PO Last administered on 12/04/16 07:59; Start 11/26/16 at 09:00 Bisacodyl (Dulcolax Supp) 10 mg PRN DAILY PRN RC CONSTIPATION; Start 11/25/16 at 18:15 Clonidine HCl (Catapres) 0.2 mg HS PO Last administered on 12/03/16 21:24; Start 11/25/16 at 21:00 Polyethylene Glycol (miraLAX) 17 gm DAILY PO Last administered on 12/04/16 07: 59; Start 11/26/16 at 09:00 Simvastatin (Zocor) 40 mg HS PO Last administered on 12/03/16 21:23; Start 11/25/16 at 21:00 Artificial Tears (Artificial Tears) 1 drop PRN TID PRN OU DRY EYE; Start at 18:30 Calcium Polycarbophil (Fibercon) 625 mg DAILY PO Last administered on 07:59; Start 11/26/16 at 09:00 Magnesium Hydroxide (Milk Of Magnesia) 2,400 mg PRN QHS PRN PO CONSTIPATION; Start 11/25/16 at 18:30 Metoprolol Tartrate (Lopressor) 100 mg BID PO Last administered on 12/04/16 08 :00; Start 11/25/16 at 21:00 Pramipexole Dihydrochloride (miraPEX) 1 mg PRN QHS PRN PO RESTLESS LEG; Start 11/25/16 at 21:00 Multivitamins (Chewable-Sar[place]) 2 tab DAILY PO Last administered on 12/04/16 08: 02; Start 11/26/16 at 09:00 Bupropion HCl (Wellbutrin Xl) 450 mg DAILY PO Last administered on 11/26/16 09 :13; Start 11/26/16 at 09:00; Stop 11/26/16 at 18:23; Status DC Quetiapine Fumarate (SEROquel) 25 mg BID PO Last administered on 12/04/16 08: 00; Start 11/25/16 at 21:00 Sertraline HCl (Zoloft) 200 mg DAILY PO Last administered on 12/04/16 08:00; Start 11/26/16 at 09:00 Olanzapine (Zyprexa Zydis) 2.5 mg PRN Q2HR PRN PO PSYCHOSIS Last administered on 11/26/16 07:35; Start 11/26/16 at 06:00 Hydrochlorothiazide (Hydrodiuril) 25 mg DAILY PO Last administered on 08:00; Start 11/27/16 at 09:00 Potassium Chloride (Klor-Con) 10 meq DAILY PO Last administered on 12/04/16 08 :00; Start 11/27/16 at 09:00 Spironolactone (Aldactone) 25 mg DAILY PO Last administered on 12/04/16 07:59 ; Start 11/27/16 at 09:00 Bupropion HCl (Wellbutrin Xl) 150 mg DAILY PO Last administered on 12/04/16 07 :59; Start 11/27/16 at 09:00 Rivastigmine (Exelon) 1 patch DAILY TD Last administered on 12/04/16 07:59; Start 11/27/16 at 09:00 Memantine (Namenda) 5 mg DAILY PO Last administered on 11/29/16 09:56; Start 11/27/16 at 09:00; Stop 11/30/16 at 08:00; Status DC Memantine (Namenda) 5 mg BID PO Last administered on 12/02/16 19:43; Start at 09:00; Stop 12/03/16 at 08:00; Status DC Memantine (Namenda) 5 mg DAILY PO Last administered on 12/04/16 08:00; Start 12/03/16 at 09:00; Stop 12/06/16 at 08:00 Memantine (Namenda) 10 mg HS PO Last administered on 12/03/16 21:25; Start at 21:00; Stop 12/06/16 at 20:00 Memantine (Namenda) 10 mg BID PO ; Start 12/08/16 at 09:00 Active Scripts Active Reported Mirapex (Pramipexole Di-Hcl) 1 Mg Tablet 1 Mg PO PRN DAILY PRN Milk Of Magnesia (Magnesium Hydroxide) 2,400 Mg/10 Ml Oral.susp 2,400 Mg PO PRN QHS PRN Bisacodyl 10 Mg Supp.rect 10 Mg RC PRN DAILY PRN Artificial Tears (Dextran 70/Hypromellose) 1 Each Droperette 1 Each OP PRN TID PRN Zocor (Simvastatin) 40 Mg Tablet 40 Mg PO HS Quetiapine Fumarate 25 Mg Tablet 25 Mg PO BID Clonidine Hcl 0.2 Mg Tablet 0.2 Mg PO HS Spironolactone 25 Mg Tablet 25 Mg PO DAILY Zoloft (Sertraline Hcl) 100 Mg Tablet 200 Mg PO DAILY Klor-Con M10 (Potassium Chloride) 10 Meq Tab.er.prt 10 Meq PO DAILY Miralax (Polyethylene Glycol 3350) 17 Gm Powd.pack 17 Gm PO DAILY [multi+omega-3 gummy] 2 Tab.chew PO DAILY Metoprolol Tartrate 100 Mg Tablet 100 Mg PO BID Lisinopril 20 Mg Tablet 60 Mg PO DAILY Hydrochlorothiazide Tablet (Hydrochlorothiazide) 25 Mg Tablet 25 Mg PO DAILY Fiber Gummies (Inulin) 2 Gm Tab.chew 4 Gm PO DAILY Wellbutrin Xl (Bupropion Hcl) 300 Mg Tab.er.24h 450 Mg PO DAILY Aspir-Low (Aspirin) 81 Mg Tablet. 81 Mg PO DAILY Diagnosis: Problems: (1) Anxiety disorder (2) Dementia in Alzheimer's disease with delusions (3) Dementia in Alzheimer's disease with depression (4) Lewy body dementia with behavioral disturbance (5) Impulse control disorder ALBINA ASHBY MD Dec 04, 2016 09:47
[2016-12-04 16:07] VITALS: BP 111/74
[2016-12-04] MEDS: MEMANTINE 10 MG TABLET. PO SCH (19:45)
[2016-12-04] MEDS: CLONIDINE HCL 0.2 MG TABLET PO SCH (19:46)
[2016-12-04] MEDS: SIMVASTATIN 40 MG TABLET. PO SCH (19:46)
--- NOTE | 2016-12-05 01:16 | PN ---
DATE: 12/03/2016 This is a late entry for 12/03/2016 covers elements not covered in my initial note. SUBJECTIVE: Per nursing report, the patient remains confused, intermittently more so during the day. He has been; otherwise, cooperative. REVIEW OF SYSTEMS: No CV, , pulmonary, eye, ENT system symptoms on review. Gait unsteady in a wheelchair. MENTAL STATUS EXAM: Oriented to himself and situation. Speech coherent, abstraction fair, computation impaired, language function intact, attention span short. Mood and affect, lability is improved. DIAGNOSES: Mentioned in my initial note. PLAN: Continue psychotropics mentioned in my initial note. MAN Fei ASHBY MD DR: GHAZAL/lamin JOB#: [id number] / [id number]
--- NOTE | 2016-12-05 01:18 | PN ---
DATE: 12/04/2016 This note covers elements not covered in my initial note of 12/04/2016. SUBJECTIVE: The patient fell last night, hit his head. CT head was negative, reviewed by Dr. Michael. He was trying to transfer himself to the toilet after removing the alarm that is when he fell. He is compliant with his medications. Intermittently, more confused, part of his Lewy body dementia. REVIEW OF SYSTEMS: Ambulation impaired, in his wheelchair. No CV, , pulmonary, eye system symptoms on review. MENTAL STATUS EXAM: Oriented to himself and situation. Speech coherent, abstraction fair, computation impaired, language function intact, attention span short. Mood and affect, lability improved. DIAGNOSIS: Unchanged from initial note. PLAN: Continue current psychotropics mentioned in the initial note. MAN Fei ASHBY MD DR: GHAZAL/lamin JOB#: [id number] / [id number]
[2016-12-05 06:24] VITALS: BP 105/67
[2016-12-05] MEDS: POLYETHYLENE GLYCOL 3350 17 GM PACKET. PO SCH (07:32)
[2016-12-05] MEDS: RIVASTIGMINE 4.6MG PATCH. TD SCH (07:32)
[2016-12-05] MEDS: CALCIUM POLYCARBOPHIL 625 MG TABLET PO SCH (07:33)
[2016-12-05] MEDS: HYDROCHLOROTHIAZIDE 25 MG TABLET PO SCH (07:33)
[2016-12-05] MEDS: POTASSIUM CHLORIDE 10 MEQ TABLET.ER. PO SCH (07:33)
[2016-12-05] MEDS: SPIRONOLACTONE 25 MG TABLET PO SCH (07:33)
[2016-12-05] MEDS: SERTRALINE 100 MG TABLET. PO SCH (07:33)
[2016-12-05] MEDS: MEMANTINE 5 MG TABLET. PO SCH (07:33)
[2016-12-05] MEDS: buPROPion XL 150 MG TAB.ER.24H PO SCH (07:33)
[2016-12-05] MEDS: QUEtiapine 25 MG TABLET. PO SCH ×2 (07:33→19:34)
[2016-12-05] MEDS: ASPIRIN ENTERIC COATED 81 MG TABLET.DR. PO SCH (07:33)
[2016-12-05] MEDS: METOPROLOL TART IMMED RELEASE 50 MG TABLET PO SCH ×2 (07:34→19:34)
[2016-12-05] MEDS: [UNRECOGNIZED DRUG - OTHER] PO SCH (07:34)
[2016-12-05 16:34] VITALS: BP 117/68
[2016-12-05] MEDS: SIMVASTATIN 40 MG TABLET. PO SCH (19:34)
[2016-12-05] MEDS: MEMANTINE 10 MG TABLET. PO SCH (19:34)
[2016-12-05] MEDS: CLONIDINE HCL 0.2 MG TABLET PO SCH (19:38)
--- NOTE | 2016-12-05 21:02 | PDOC ---
Exam Remy Demential Exam: Remy Note: Please also refer to the separate dictated note~for this date of service dictated separately.~Patient seen individually. Discussed the patient with Nursing staff reviewed the chart.~Reviewed interim history and current functioning. Reviewed vital signs,~Labs/ Radiology~and current medications noted below. Continue current treatment with the changes noted in the dictated addendum note Assessment: Vital Signs: Vital Signs Date Time Temp Pulse Resp B/P Pulse Ox O2 Delivery O2 Flow Rate FiO2 12/05/16 19:38 64 117/68 12/05/16 16:34 97.4 18 99 12/05/16 06:24 Room Air I&O Intake and Output 12/05/16 07:00 Intake Total 480 ml Balance 480 ml Intake Oral 480 ml Current Medications: Meds: Current Medications Acetaminophen (Tylenol) 650 mg PRN Q6HRS PRN PO PAIN / TEMP; Start 11/25/16 at 18:15 Multi-Ingredient Ointment (Analgesic [place]) 1 bridger PRN QID PRN TP MUSCLE PAIN; Start 11/25/16 at 18:15 Al Hydroxide/Mg Hydroxide (Mylanta Plus Xs) 15 ml PRN AFTMEALHC PRN PO DYSPEPSIA; Start 11/25/16 at 18:15 Aspirin (Aspirin Enteric Coated) 81 mg DAILY PO Last administered on 12/05/16 07:33; Start 11/26/16 at 09:00 Bisacodyl (Dulcolax Supp) 10 mg PRN DAILY PRN RC CONSTIPATION; Start 11/25/16 at 18:15 Clonidine HCl (Catapres) 0.2 mg HS PO Last administered on 12/05/16 19:38; Start 11/25/16 at 21:00 Polyethylene Glycol (miraLAX) 17 gm DAILY PO Last administered on 12/05/16 07: 32; Start 11/26/16 at 09:00 Simvastatin (Zocor) 40 mg HS PO Last administered on 12/05/16 19:34; Start 11/25/16 at 21:00 Artificial Tears (Artificial Tears) 1 drop PRN TID PRN OU DRY EYE; Start at 18:30 Calcium Polycarbophil (Fibercon) 625 mg DAILY PO Last administered on 07:33; Start 11/26/16 at 09:00 Magnesium Hydroxide (Milk Of Magnesia) 2,400 mg PRN QHS PRN PO CONSTIPATION; Start 11/25/16 at 18:30 Metoprolol Tartrate (Lopressor) 100 mg BID PO Last administered on 12/05/16 19 :34; Start 11/25/16 at 21:00 Pramipexole Dihydrochloride (miraPEX) 1 mg PRN QHS PRN PO RESTLESS LEG; Start 11/25/16 at 21:00 Multivitamins (Chewable-Saray) 2 tab DAILY PO Last administered on 12/05/16 07: 34; Start 11/26/16 at 09:00 Bupropion HCl (Wellbutrin Xl) 450 mg DAILY PO Last administered on 11/26/16 09 :13; Start 11/26/16 at 09:00; Stop 11/26/16 at 18:23; Status DC Quetiapine Fumarate (SEROquel) 25 mg BID PO Last administered on 12/05/16 19: 34; Start 11/25/16 at 21:00 Sertraline HCl (Zoloft) 200 mg DAILY PO Last administered on 12/05/16 07:33; Start 11/26/16 at 09:00 Olanzapine (Zyprexa Zydis) 2.5 mg PRN Q2HR PRN PO PSYCHOSIS Last administered on 11/26/16 07:35; Start 11/26/16 at 06:00 Hydrochlorothiazide (Hydrodiuril) 25 mg DAILY PO Last administered on 07:33; Start 11/27/16 at 09:00 Potassium Chloride (Klor-Con) 10 meq DAILY PO Last administered on 12/05/16 07 :33; Start 11/27/16 at 09:00 Spironolactone (Aldactone) 25 mg DAILY PO Last administered on 12/05/16 07:33 ; Start 11/27/16 at 09:00 Bupropion HCl (Wellbutrin Xl) 150 mg DAILY PO Last administered on 12/05/16 07 :33; Start 11/27/16 at 09:00 Rivastigmine (Exelon) 1 patch DAILY TD Last administered on 12/05/16 07:32; Start 11/27/16 at 09:00 Memantine (Namenda) 5 mg DAILY PO Last administered on 11/29/16 09:56; Start 11/27/16 at 09:00; Stop 11/30/16 at 08:00; Status DC Memantine (Namenda) 5 mg BID PO Last administered on 12/02/16 19:43; Start at 09:00; Stop 12/03/16 at 08:00; Status DC Memantine (Namenda) 5 mg DAILY PO Last administered on 12/05/16 07:33; Start 12/03/16 at 09:00; Stop 12/06/16 at 08:00 Memantine (Namenda) 10 mg HS PO Last administered on 12/05/16 19:34; Start at 21:00; Stop 12/06/16 at 20:00 Memantine (Namenda) 10 mg BID PO ; Start 12/08/16 at 09:00 Active Scripts Active Reported Mirapex (Pramipexole Di-Hcl) 1 Mg Tablet 1 Mg PO PRN DAILY PRN Milk Of Magnesia (Magnesium Hydroxide) 2,400 Mg/10 Ml Oral.susp 2,400 Mg PO PRN QHS PRN Bisacodyl 10 Mg Supp.rect 10 Mg RC PRN DAILY PRN Artificial Tears (Dextran 70/Hypromellose) 1 Each Droperette 1 Each OP PRN TID PRN Zocor (Simvastatin) 40 Mg Tablet 40 Mg PO HS Quetiapine Fumarate 25 Mg Tablet 25 Mg PO BID Clonidine Hcl 0.2 Mg Tablet 0.2 Mg PO HS Spironolactone 25 Mg Tablet 25 Mg PO DAILY Zoloft (Sertraline Hcl) 100 Mg Tablet 200 Mg PO DAILY Klor-Con M10 (Potassium Chloride) 10 Meq Tab.er.prt 10 Meq PO DAILY Miralax (Polyethylene Glycol 3350) 17 Gm Powd.pack 17 Gm PO DAILY [multi+omega-3 gummy] 2 Tab.chew PO DAILY Metoprolol Tartrate 100 Mg Tablet 100 Mg PO BID Lisinopril 20 Mg Tablet 60 Mg PO DAILY Hydrochlorothiazide Tablet (Hydrochlorothiazide) 25 Mg Tablet 25 Mg PO DAILY Fiber Gummies (Inulin) 2 Gm Tab.chew 4 Gm PO DAILY Wellbutrin Xl (Bupropion Hcl) 300 Mg Tab.er.24h 450 Mg PO DAILY Aspir-Low (Aspirin) 81 Mg Tablet. 81 Mg PO DAILY Diagnosis: Problems: (1) Anxiety disorder (2) Dementia in Alzheimer's disease with delusions (3) Dementia in Alzheimer's disease with depression (4) Lewy body dementia with behavioral disturbance (5) Impulse control disorder ALBINA ASHBY MD Dec 05, 2016 21:02
[2016-12-06 05:47] VITALS: BP 111/69
[2016-12-06] MEDS: QUEtiapine 25 MG TABLET. PO SCH ×2 (07:37→20:15)
[2016-12-06] MEDS: POTASSIUM CHLORIDE 10 MEQ TABLET.ER. PO SCH (07:38)
[2016-12-06] MEDS: SPIRONOLACTONE 25 MG TABLET PO SCH (07:38)
[2016-12-06] MEDS: HYDROCHLOROTHIAZIDE 25 MG TABLET PO SCH (07:38)
[2016-12-06] MEDS: ASPIRIN ENTERIC COATED 81 MG TABLET.DR. PO SCH (07:38)
[2016-12-06] MEDS: CALCIUM POLYCARBOPHIL 625 MG TABLET PO SCH (07:39)
[2016-12-06] MEDS: buPROPion XL 150 MG TAB.ER.24H PO SCH (07:39)
[2016-12-06] MEDS: SERTRALINE 100 MG TABLET. PO SCH (07:39)
[2016-12-06] MEDS: [UNRECOGNIZED DRUG - OTHER] PO SCH (07:39)
[2016-12-06] MEDS: METOPROLOL TART IMMED RELEASE 50 MG TABLET PO SCH ×2 (07:39→20:15)
[2016-12-06] MEDS: POLYETHYLENE GLYCOL 3350 17 GM PACKET. PO SCH (07:40)
[2016-12-06] MEDS: RIVASTIGMINE 4.6MG PATCH. TD SCH (07:40)
[2016-12-06 16:52] VITALS: BP 129/81
--- NOTE | 2016-12-06 19:11 | PDOC ---
Exam Remy Demential Exam: Remy Note: Please also refer to the separate dictated note~for this date of service dictated separately.~Patient seen individually. Discussed the patient with Nursing staff reviewed the chart.~Reviewed interim history and current functioning. Reviewed vital signs,~Labs/ Radiology~and current medications noted below. Continue current treatment with the changes noted in the dictated addendum note Assessment: Vital Signs: Vital Signs Date Time Temp Pulse Resp B/P Pulse Ox O2 Delivery O2 Flow Rate FiO2 12/06/16 16:52 97.2 68 18 129/81 96 12/05/16 06:24 Room Air I&O Intake and Output 12/06/16 07:00 Intake Total 840 ml Balance 840 ml Intake Oral 840 ml # Voids 1 # Bowel Movements 1 Current Medications: Meds: Current Medications Acetaminophen (Tylenol) 650 mg PRN Q6HRS PRN PO PAIN / TEMP; Start 11/25/16 at 18:15 Multi-Ingredient Ointment (Analgesic [place]) 1 bridger PRN QID PRN TP MUSCLE PAIN; Start 11/25/16 at 18:15 Al Hydroxide/Mg Hydroxide (Mylanta Plus Xs) 15 ml PRN AFTMEALHC PRN PO DYSPEPSIA; Start 11/25/16 at 18:15 Aspirin (Aspirin Enteric Coated) 81 mg DAILY PO Last administered on 12/06/16 07:38; Start 11/26/16 at 09:00 Bisacodyl (Dulcolax Supp) 10 mg PRN DAILY PRN RC CONSTIPATION; Start 11/25/16 at 18:15 Clonidine HCl (Catapres) 0.2 mg HS PO Last administered on 12/05/16 19:38; Start 11/25/16 at 21:00 Polyethylene Glycol (miraLAX) 17 gm DAILY PO Last administered on 12/06/16 07: 40; Start 11/26/16 at 09:00 Simvastatin (Zocor) 40 mg HS PO Last administered on 12/05/16 19:34; Start 11/25/16 at 21:00 Artificial Tears (Artificial Tears) 1 drop PRN TID PRN OU DRY EYE; Start at 18:30 Calcium Polycarbophil (Fibercon) 625 mg DAILY PO Last administered on 07:39; Start 11/26/16 at 09:00 Magnesium Hydroxide (Milk Of Magnesia) 2,400 mg PRN QHS PRN PO CONSTIPATION; Start 11/25/16 at 18:30 Metoprolol Tartrate (Lopressor) 100 mg BID PO Last administered on 12/06/16 07 :39; Start 11/25/16 at 21:00 Pramipexole Dihydrochloride (miraPEX) 1 mg PRN QHS PRN PO RESTLESS LEG; Start 11/25/16 at 21:00 Multivitamins (Chewable-Saray) 2 tab DAILY PO Last administered on 12/06/16 07: 39; Start 11/26/16 at 09:00 Bupropion HCl (Wellbutrin Xl) 450 mg DAILY PO Last administered on 11/26/16 09 :13; Start 11/26/16 at 09:00; Stop 11/26/16 at 18:23; Status DC Quetiapine Fumarate (SEROquel) 25 mg BID PO Last administered on 12/06/16 07: 37; Start 11/25/16 at 21:00 Sertraline HCl (Zoloft) 200 mg DAILY PO Last administered on 12/06/16 07:39; Start 11/26/16 at 09:00 Olanzapine (Zyprexa Zydis) 2.5 mg PRN Q2HR PRN PO PSYCHOSIS Last administered on 11/26/16 07:35; Start 11/26/16 at 06:00 Hydrochlorothiazide (Hydrodiuril) 25 mg DAILY PO Last administered on 07:38; Start 11/27/16 at 09:00 Potassium Chloride (Klor-Con) 10 meq DAILY PO Last administered on 12/06/16 07 :38; Start 11/27/16 at 09:00 Spironolactone (Aldactone) 25 mg DAILY PO Last administered on 12/06/16 07:38 ; Start 11/27/16 at 09:00 Bupropion HCl (Wellbutrin Xl) 150 mg DAILY PO Last administered on 12/06/16 07 :39; Start 11/27/16 at 09:00 Rivastigmine (Exelon) 1 patch DAILY TD Last administered on 12/06/16 07:40; Start 11/27/16 at 09:00 Memantine (Namenda) 5 mg DAILY PO Last administered on 11/29/16 09:56; Start 11/27/16 at 09:00; Stop 11/30/16 at 08:00; Status DC Memantine (Namenda) 5 mg BID PO Last administered on 12/02/16 19:43; Start at 09:00; Stop 12/03/16 at 08:00; Status DC Memantine (Namenda) 5 mg DAILY PO Last administered on 12/05/16 07:33; Start 12/03/16 at 09:00; Stop 12/06/16 at 08:00; Status DC Memantine (Namenda) 10 mg HS PO Last administered on 12/05/16 19:34; Start at 21:00; Stop 12/06/16 at 20:00 Memantine (Namenda) 10 mg BID PO ; Start 12/08/16 at 09:00 Active Scripts Active Reported Mirapex (Pramipexole Di-Hcl) 1 Mg Tablet 1 Mg PO PRN DAILY PRN Milk Of Magnesia (Magnesium Hydroxide) 2,400 Mg/10 Ml Oral.susp 2,400 Mg PO PRN QHS PRN Bisacodyl 10 Mg Supp.rect 10 Mg RC PRN DAILY PRN Artificial Tears (Dextran 70/Hypromellose) 1 Each Droperette 1 Each OP PRN TID PRN Zocor (Simvastatin) 40 Mg Tablet 40 Mg PO HS Quetiapine Fumarate 25 Mg Tablet 25 Mg PO BID Clonidine Hcl 0.2 Mg Tablet 0.2 Mg PO HS Spironolactone 25 Mg Tablet 25 Mg PO DAILY Zoloft (Sertraline Hcl) 100 Mg Tablet 200 Mg PO DAILY Klor-Con M10 (Potassium Chloride) 10 Meq Tab.er.prt 10 Meq PO DAILY Miralax (Polyethylene Glycol 3350) 17 Gm Powd.pack 17 Gm PO DAILY [multi+omega-3 gummy] 2 Tab.chew PO DAILY Metoprolol Tartrate 100 Mg Tablet 100 Mg PO BID Lisinopril 20 Mg Tablet 60 Mg PO DAILY Hydrochlorothiazide Tablet (Hydrochlorothiazide) 25 Mg Tablet 25 Mg PO DAILY Fiber Gummies (Inulin) 2 Gm Tab.chew 4 Gm PO DAILY Wellbutrin Xl (Bupropion Hcl) 300 Mg Tab.er.24h 450 Mg PO DAILY Aspir-Low (Aspirin) 81 Mg Tablet. 81 Mg PO DAILY Diagnosis: Problems: (1) Anxiety disorder (2) Dementia in Alzheimer's disease with delusions (3) Dementia in Alzheimer's disease with depression (4) Lewy body dementia with behavioral disturbance (5) Impulse control disorder ALBINA ASHBY MD Dec 06, 2016 19:11
[2016-12-06] MEDS: SIMVASTATIN 40 MG TABLET. PO SCH (20:13)
[2016-12-06] MEDS: CLONIDINE HCL 0.2 MG TABLET PO SCH (20:15)
--- NOTE | 2016-12-06 21:32 | PN ---
DATE: 12/05/2016 This is a late entry for 12/05/2016 covers elements not covered in my initial note. SUBJECTIVE: The patient remains a little withdrawn at times, refused to go to the dining room for supper the previous night, but then later did comply. REVIEW OF SYSTEMS: He is in his wheelchair, I pushed him ____ partly to his supper to the dining room and he is very appreciative of this. No CV, , pulmonary, eye, ENT system symptoms on review. MENTAL STATUS EXAM: Oriented to himself and situation. Speech is coherent, abstraction fair, computation impaired, language function intact, attention span short. Mood and affect, lability is improved. LABORATORY DATA: Reviewed. IMPRESSION: Major neurocognitive disorder, Lewy body type with delusion, depression, behavioral disturbance; anxiety disorder, unspecified; impulse control disorder, unspecified. PLAN: Continue current psychotropics mentioned in my initial note. Adjust further as clinically indicated. MAN Fei ASHBY MD DR: GHAZAL/lamin JOB#: [id number] / [id number]
[2016-12-07 06:07] VITALS: BP 137/90
[2016-12-07] MEDS: SPIRONOLACTONE 25 MG TABLET PO SCH (09:07)
[2016-12-07] MEDS: CALCIUM POLYCARBOPHIL 625 MG TABLET PO SCH (09:07)
[2016-12-07] MEDS: [UNRECOGNIZED DRUG - OTHER] PO SCH (09:08)
[2016-12-07] MEDS: POTASSIUM CHLORIDE 10 MEQ TABLET.ER. PO SCH (09:08)
[2016-12-07] MEDS: HYDROCHLOROTHIAZIDE 25 MG TABLET PO SCH (09:08)
[2016-12-07] MEDS: buPROPion XL 150 MG TAB.ER.24H PO SCH (09:08)
[2016-12-07] MEDS: QUEtiapine 25 MG TABLET. PO SCH ×2 (09:08→19:45)
[2016-12-07] MEDS: METOPROLOL TART IMMED RELEASE 50 MG TABLET PO SCH ×2 (09:08→19:45)
[2016-12-07] MEDS: POLYETHYLENE GLYCOL 3350 17 GM PACKET. PO SCH (09:08)
[2016-12-07] MEDS: ASPIRIN ENTERIC COATED 81 MG TABLET.DR. PO SCH (09:08)
[2016-12-07] MEDS: SERTRALINE 100 MG TABLET. PO SCH (09:08)
[2016-12-07] MEDS: RIVASTIGMINE 4.6MG PATCH. TD SCH (09:09)
[2016-12-07 15:44] VITALS: BP 130/78
[2016-12-07] MEDS: CLONIDINE HCL 0.2 MG TABLET PO SCH (19:45)
[2016-12-07] MEDS: SIMVASTATIN 40 MG TABLET. PO SCH (19:45)
--- NOTE | 2016-12-07 20:52 | PDOC ---
Exam Remy Demential Exam: Remy Note: Please also refer to the separate dictated note~for this date of service dictated separately.~Patient seen individually. Discussed the patient with Nursing staff reviewed the chart.~Reviewed interim history and current functioning. Reviewed vital signs,~Labs/ Radiology~and current medications noted below. Continue current treatment with the changes noted in the dictated addendum note Assessment: Vital Signs: Vital Signs Date Time Temp Pulse Resp B/P Pulse Ox O2 Delivery O2 Flow Rate FiO2 12/07/16 19:45 60 130/78 12/07/16 15:44 97.2 18 100 12/05/16 06:24 Room Air I&O Intake and Output 12/07/16 07:00 Intake Total 960 ml Balance 960 ml Intake Oral 960 ml Current Medications: Meds: Current Medications Acetaminophen (Tylenol) 650 mg PRN Q6HRS PRN PO PAIN / TEMP; Start 11/25/16 at 18:15 Multi-Ingredient Ointment (Analgesic [place]) 1 bridger PRN QID PRN TP MUSCLE PAIN; Start 11/25/16 at 18:15 Al Hydroxide/Mg Hydroxide (Mylanta Plus Xs) 15 ml PRN AFTMEALHC PRN PO DYSPEPSIA; Start 11/25/16 at 18:15 Aspirin (Aspirin Enteric Coated) 81 mg DAILY PO Last administered on 12/07/16 09:08; Start 11/26/16 at 09:00 Bisacodyl (Dulcolax Supp) 10 mg PRN DAILY PRN RC CONSTIPATION; Start 11/25/16 at 18:15 Clonidine HCl (Catapres) 0.2 mg HS PO Last administered on 12/07/16 19:45; Start 11/25/16 at 21:00 Polyethylene Glycol (miraLAX) 17 gm DAILY PO Last administered on 12/07/16 09: 08; Start 11/26/16 at 09:00 Simvastatin (Zocor) 40 mg HS PO Last administered on 12/07/16 19:45; Start 11/25/16 at 21:00 Artificial Tears (Artificial Tears) 1 drop PRN TID PRN OU DRY EYE; Start at 18:30 Calcium Polycarbophil (Fibercon) 625 mg DAILY PO Last administered on 09:07; Start 11/26/16 at 09:00 Magnesium Hydroxide (Milk Of Magnesia) 2,400 mg PRN QHS PRN PO CONSTIPATION; Start 11/25/16 at 18:30 Metoprolol Tartrate (Lopressor) 100 mg BID PO Last administered on 12/07/16 19 :45; Start 11/25/16 at 21:00 Pramipexole Dihydrochloride (miraPEX) 1 mg PRN QHS PRN PO RESTLESS LEG; Start 11/25/16 at 21:00 Multivitamins (Chewable-Saray) 2 tab DAILY PO Last administered on 12/07/16 09: 08; Start 11/26/16 at 09:00 Bupropion HCl (Wellbutrin Xl) 450 mg DAILY PO Last administered on 11/26/16 09 :13; Start 11/26/16 at 09:00; Stop 11/26/16 at 18:23; Status DC Quetiapine Fumarate (SEROquel) 25 mg BID PO Last administered on 12/07/16 19: 45; Start 11/25/16 at 21:00 Sertraline HCl (Zoloft) 200 mg DAILY PO Last administered on 12/07/16 09:08; Start 11/26/16 at 09:00 Olanzapine (Zyprexa Zydis) 2.5 mg PRN Q2HR PRN PO PSYCHOSIS Last administered on 11/26/16 07:35; Start 11/26/16 at 06:00 Hydrochlorothiazide (Hydrodiuril) 25 mg DAILY PO Last administered on 09:08; Start 11/27/16 at 09:00 Potassium Chloride (Klor-Con) 10 meq DAILY PO Last administered on 12/07/16 09 :08; Start 11/27/16 at 09:00 Spironolactone (Aldactone) 25 mg DAILY PO Last administered on 12/07/16 09:07 ; Start 11/27/16 at 09:00 Bupropion HCl (Wellbutrin Xl) 150 mg DAILY PO Last administered on 12/07/16 09 :08; Start 11/27/16 at 09:00 Rivastigmine (Exelon) 1 patch DAILY TD Last administered on 12/07/16 09:09; Start 11/27/16 at 09:00 Memantine (Namenda) 5 mg DAILY PO Last administered on 11/29/16 09:56; Start 11/27/16 at 09:00; Stop 11/30/16 at 08:00; Status DC Memantine (Namenda) 5 mg BID PO Last administered on 12/02/16 19:43; Start at 09:00; Stop 12/03/16 at 08:00; Status DC Memantine (Namenda) 5 mg DAILY PO Last administered on 12/05/16 07:33; Start 12/03/16 at 09:00; Stop 12/06/16 at 08:00; Status DC Memantine (Namenda) 10 mg HS PO Last administered on 12/05/16 19:34; Start at 21:00; Stop 12/06/16 at 20:00; Status DC Memantine (Namenda) 10 mg BID PO ; Start 12/08/16 at 09:00 Active Scripts Active Reported Mirapex (Pramipexole Di-Hcl) 1 Mg Tablet 1 Mg PO PRN DAILY PRN Milk Of Magnesia (Magnesium Hydroxide) 2,400 Mg/10 Ml Oral.susp 2,400 Mg PO PRN QHS PRN Bisacodyl 10 Mg Supp.rect 10 Mg RC PRN DAILY PRN Artificial Tears (Dextran 70/Hypromellose) 1 Each Droperette 1 Each OP PRN TID PRN Zocor (Simvastatin) 40 Mg Tablet 40 Mg PO HS Quetiapine Fumarate 25 Mg Tablet 25 Mg PO BID Clonidine Hcl 0.2 Mg Tablet 0.2 Mg PO HS Spironolactone 25 Mg Tablet 25 Mg PO DAILY Zoloft (Sertraline Hcl) 100 Mg Tablet 200 Mg PO DAILY Klor-Con M10 (Potassium Chloride) 10 Meq Tab.er.prt 10 Meq PO DAILY Miralax (Polyethylene Glycol 3350) 17 Gm Powd.pack 17 Gm PO DAILY [multi+omega-3 gummy] 2 Tab.chew PO DAILY Metoprolol Tartrate 100 Mg Tablet 100 Mg PO BID Lisinopril 20 Mg Tablet 60 Mg PO DAILY Hydrochlorothiazide Tablet (Hydrochlorothiazide) 25 Mg Tablet 25 Mg PO DAILY Fiber Gummies (Inulin) 2 Gm Tab.chew 4 Gm PO DAILY Wellbutrin Xl (Bupropion Hcl) 300 Mg Tab.er.24h 450 Mg PO DAILY Aspir-Low (Aspirin) 81 Mg Tablet. 81 Mg PO DAILY Diagnosis: Problems: (1) Anxiety disorder (2) Dementia in Alzheimer's disease with delusions (3) Dementia in Alzheimer's disease with depression (4) Lewy body dementia with behavioral disturbance (5) Impulse control disorder ALBINA ASHBY MD Dec 07, 2016 20:52
[2016-12-08 05:51] VITALS: BP 143/89
[2016-12-08] MEDS: POLYETHYLENE GLYCOL 3350 17 GM PACKET. PO SCH (08:43)
[2016-12-08] MEDS: POTASSIUM CHLORIDE 10 MEQ TABLET.ER. PO SCH (08:44)
[2016-12-08] MEDS: RIVASTIGMINE 4.6MG PATCH. TD SCH (08:44)
[2016-12-08] MEDS: ASPIRIN ENTERIC COATED 81 MG TABLET.DR. PO SCH (08:44)
[2016-12-08] MEDS: QUEtiapine 25 MG TABLET. PO SCH ×2 (08:44→19:30)
[2016-12-08] MEDS: HYDROCHLOROTHIAZIDE 25 MG TABLET PO SCH (08:44)
[2016-12-08] MEDS: CALCIUM POLYCARBOPHIL 625 MG TABLET PO SCH (08:44)
[2016-12-08] MEDS: SPIRONOLACTONE 25 MG TABLET PO SCH (08:44)
[2016-12-08] MEDS: buPROPion XL 150 MG TAB.ER.24H PO SCH (08:44)
[2016-12-08] MEDS: [UNRECOGNIZED DRUG - OTHER] PO SCH (08:44)
[2016-12-08] MEDS: SERTRALINE 100 MG TABLET. PO SCH (08:45)
[2016-12-08] MEDS: METOPROLOL TART IMMED RELEASE 50 MG TABLET PO SCH ×2 (08:45→19:29)
[2016-12-08] MEDS: MEMANTINE 10 MG TABLET. PO SCH ×2 (08:46→19:30)
[2016-12-08 16:08] VITALS: BP 128/81
[2016-12-08] MEDS: CLONIDINE HCL 0.2 MG TABLET PO SCH (19:29)
[2016-12-08] MEDS: SIMVASTATIN 40 MG TABLET. PO SCH (19:29)
--- NOTE | 2016-12-08 21:05 | PDOC ---
Exam Remy Demential Exam: Remy Note: Please also refer to the separate dictated note~for this date of service dictated separately.~Patient seen individually. Discussed the patient with Nursing staff reviewed the chart.~Reviewed interim history and current functioning. Reviewed vital signs,~Labs/ Radiology~and current medications noted below. Continue current treatment with the changes noted in the dictated addendum note Assessment: Vital Signs: Vital Signs Date Time Temp Pulse Resp B/P Pulse Ox O2 Delivery O2 Flow Rate FiO2 12/08/16 19:29 70 128/81 12/08/16 16:08 98.7 20 100 12/05/16 06:24 Room Air I&O Intake and Output 12/08/16 07:00 Intake Total 720 ml Balance 720 ml Intake Oral 720 ml Current Medications: Meds: Current Medications Acetaminophen (Tylenol) 650 mg PRN Q6HRS PRN PO PAIN / TEMP; Start 11/25/16 at 18:15 Multi-Ingredient Ointment (Analgesic [place]) 1 bridger PRN QID PRN TP MUSCLE PAIN; Start 11/25/16 at 18:15 Al Hydroxide/Mg Hydroxide (Mylanta Plus Xs) 15 ml PRN AFTMEALHC PRN PO DYSPEPSIA; Start 11/25/16 at 18:15 Aspirin (Aspirin Enteric Coated) 81 mg DAILY PO Last administered on 12/08/16 08:44; Start 11/26/16 at 09:00 Bisacodyl (Dulcolax Supp) 10 mg PRN DAILY PRN RC CONSTIPATION; Start 11/25/16 at 18:15 Clonidine HCl (Catapres) 0.2 mg HS PO Last administered on 12/08/16 19:29; Start 11/25/16 at 21:00 Polyethylene Glycol (miraLAX) 17 gm DAILY PO Last administered on 12/08/16 08: 43; Start 11/26/16 at 09:00 Simvastatin (Zocor) 40 mg HS PO Last administered on 12/08/16 19:29; Start 11/25/16 at 21:00 Artificial Tears (Artificial Tears) 1 drop PRN TID PRN OU DRY EYE; Start at 18:30 Calcium Polycarbophil (Fibercon) 625 mg DAILY PO Last administered on 08:44; Start 11/26/16 at 09:00 Magnesium Hydroxide (Milk Of Magnesia) 2,400 mg PRN QHS PRN PO CONSTIPATION; Start 11/25/16 at 18:30 Metoprolol Tartrate (Lopressor) 100 mg BID PO Last administered on 12/08/16 19 :29; Start 11/25/16 at 21:00 Pramipexole Dihydrochloride (miraPEX) 1 mg PRN QHS PRN PO RESTLESS LEG; Start 11/25/16 at 21:00 Multivitamins (Chewable-Saray) 2 tab DAILY PO Last administered on 12/08/16 08: 44; Start 11/26/16 at 09:00 Bupropion HCl (Wellbutrin Xl) 450 mg DAILY PO Last administered on 11/26/16 09 :13; Start 11/26/16 at 09:00; Stop 11/26/16 at 18:23; Status DC Quetiapine Fumarate (SEROquel) 25 mg BID PO Last administered on 12/08/16 19: 30; Start 11/25/16 at 21:00 Sertraline HCl (Zoloft) 200 mg DAILY PO Last administered on 12/08/16 08:45; Start 11/26/16 at 09:00 Olanzapine (Zyprexa Zydis) 2.5 mg PRN Q2HR PRN PO PSYCHOSIS Last administered on 11/26/16 07:35; Start 11/26/16 at 06:00 Hydrochlorothiazide (Hydrodiuril) 25 mg DAILY PO Last administered on 08:44; Start 11/27/16 at 09:00 Potassium Chloride (Klor-Con) 10 meq DAILY PO Last administered on 12/08/16 08 :44; Start 11/27/16 at 09:00 Spironolactone (Aldactone) 25 mg DAILY PO Last administered on 12/08/16 08:44 ; Start 11/27/16 at 09:00 Bupropion HCl (Wellbutrin Xl) 150 mg DAILY PO Last administered on 12/08/16 08 :44; Start 11/27/16 at 09:00 Rivastigmine (Exelon) 1 patch DAILY TD Last administered on 12/08/16 08:44; Start 11/27/16 at 09:00 Memantine (Namenda) 5 mg DAILY PO Last administered on 11/29/16 09:56; Start 11/27/16 at 09:00; Stop 11/30/16 at 08:00; Status DC Memantine (Namenda) 5 mg BID PO Last administered on 12/02/16 19:43; Start at 09:00; Stop 12/03/16 at 08:00; Status DC Memantine (Namenda) 5 mg DAILY PO Last administered on 12/05/16 07:33; Start 12/03/16 at 09:00; Stop 12/06/16 at 08:00; Status DC Memantine (Namenda) 10 mg HS PO Last administered on 12/05/16 19:34; Start at 21:00; Stop 12/06/16 at 20:00; Status DC Memantine (Namenda) 10 mg BID PO Last administered on 12/08/16 19:30; Start at 09:00 Active Scripts Active Reported Mirapex (Pramipexole Di-Hcl) 1 Mg Tablet 1 Mg PO PRN DAILY PRN Milk Of Magnesia (Magnesium Hydroxide) 2,400 Mg/10 Ml Oral.susp 2,400 Mg PO PRN QHS PRN Bisacodyl 10 Mg Supp.rect 10 Mg RC PRN DAILY PRN Artificial Tears (Dextran 70/Hypromellose) 1 Each Droperette 1 Each OP PRN TID PRN Zocor (Simvastatin) 40 Mg Tablet 40 Mg PO HS Quetiapine Fumarate 25 Mg Tablet 25 Mg PO BID Clonidine Hcl 0.2 Mg Tablet 0.2 Mg PO HS Spironolactone 25 Mg Tablet 25 Mg PO DAILY Zoloft (Sertraline Hcl) 100 Mg Tablet 200 Mg PO DAILY Klor-Con M10 (Potassium Chloride) 10 Meq Tab.er.prt 10 Meq PO DAILY Miralax (Polyethylene Glycol 3350) 17 Gm Powd.pack 17 Gm PO DAILY [multi+omega-3 gummy] 2 Tab.chew PO DAILY Metoprolol Tartrate 100 Mg Tablet 100 Mg PO BID Lisinopril 20 Mg Tablet 60 Mg PO DAILY Hydrochlorothiazide Tablet (Hydrochlorothiazide) 25 Mg Tablet 25 Mg PO DAILY Fiber Gummies (Inulin) 2 Gm Tab.chew 4 Gm PO DAILY Wellbutrin Xl (Bupropion Hcl) 300 Mg Tab.er.24h 450 Mg PO DAILY Aspir-Low (Aspirin) 81 Mg Tablet.dr 81 Mg PO DAILY Diagnosis: Problems: (1) Anxiety disorder (2) Dementia in Alzheimer's disease with delusions (3) Dementia in Alzheimer's disease with depression (4) Lewy body dementia with behavioral disturbance (5) Impulse control disorder ALBINA ASHBY MD Dec 08, 2016 21:05
[2016-12-08] MEDS ORDERED: ACET325T9 PO (23:16)
[2016-12-08] MEDS ORDERED: CALC625T PO (23:18)
[2016-12-08] MEDS ORDERED: MAG355OR17 PO (23:24)
[2016-12-08] MEDS ORDERED: METH29OI TP (23:26)
[2016-12-08] MEDS ORDERED: MULT1TAB80 PO (23:30)
[2016-12-08] MEDS ORDERED: POLY15DR20 OU (23:35)
[2016-12-09] MEDS ORDERED: BUPR150T6 PO (00:07)
[2016-12-09] MEDS ORDERED: MEMA10TA PO (00:08)
[2016-12-09] MEDS ORDERED: OLAN5TAB5 PO (00:10)
[2016-12-09] MEDS ORDERED: RIVA1PAT TD (00:12)
--- NOTE | 2016-12-09 00:38 | PN ---
DATE: 12/06/2016 PSYCHIATRIC PROGRESS NOTE This is a late entry for 12/06/2016, covers elements not covered in my initial note. SUBJECTIVE: Overall, the patient has been confused, remains in a wheelchair, often drinks Boost for his meals only. He is otherwise cooperative. REVIEW OF SYSTEMS: Ambulation impaired. No CV, , pulmonary, eye, ENT system symptoms on review. MENTAL STATUS EXAM: Oriented to himself, at times to situation. Speech coherent. He covers up his confusion with slight sense of humor. Insight, judgment, recent memory is impaired. Language function is intact. Attention span is short. Mood and affect, lability is improved. LABORATORY DATA: Reviewed. IMPRESSION: Unchanged from initial note. PLAN: Continue psychotropics mentioned in my initial note. Adjust as clinically indicated. MAN Fei ASHBY MD DR: GHAZAL/lamin JOB#: [id number] / [id number]
--- NOTE | 2016-12-09 00:39 | PN ---
DATE: 12/07/2016 PSYCHIATRIC PROGRESS NOTE This is a late entry for 12/07/2016 covers elements not covered in my initial note. SUBJECTIVE: Per nursing report, the patient remains confused, but has not been aggressive. He has periods of time during the day when he is more anxious, restless, but has a sense of humor and overall mood is stable. REVIEW OF SYSTEMS: Ambulation impaired in his wheelchair. No CV, , pulmonary, eye, ENT system symptoms on review. MENTAL STATUS EXAM: Oriented to himself. Insight, judgment, recent memory is impaired. Language function intact, attention span short, mood and affect has improved. IMPRESSION: Unchanged from initial note. PLAN: Continue current psychotropics. Possible transition to a lower level of care in the next day or two. MAN Fei ASHBY MD DR: GHAZAL/lamin JOB#: [id number] / [id number]
[2016-12-09 06:10] VITALS: BP 94/94
[2016-12-09] MEDS: SPIRONOLACTONE 25 MG TABLET PO SCH (08:34)
[2016-12-09] MEDS: ASPIRIN ENTERIC COATED 81 MG TABLET.DR. PO SCH (08:34)
[2016-12-09] MEDS: CALCIUM POLYCARBOPHIL 625 MG TABLET PO SCH (08:35)
[2016-12-09 08:37] VITALS: BP 162/94
[2016-12-09] MEDS: buPROPion XL 150 MG TAB.ER.24H PO SCH (08:37)
[2016-12-09] MEDS: METOPROLOL TART IMMED RELEASE 50 MG TABLET PO SCH (08:37)
[2016-12-09] MEDS: SERTRALINE 100 MG TABLET. PO SCH (08:37)
[2016-12-09] MEDS: POLYETHYLENE GLYCOL 3350 17 GM PACKET. PO SCH (08:38)
[2016-12-09] MEDS: RIVASTIGMINE 4.6MG PATCH. TD SCH (08:38)
[2016-12-09] MEDS: HYDROCHLOROTHIAZIDE 25 MG TABLET PO SCH (08:38)
[2016-12-09] MEDS: POTASSIUM CHLORIDE 10 MEQ TABLET.ER. PO SCH (08:38)
[2016-12-09] MEDS: QUEtiapine 25 MG TABLET. PO SCH (08:38)
[2016-12-09] MEDS: MEMANTINE 10 MG TABLET. PO SCH (08:38)
[2016-12-09] MEDS: [UNRECOGNIZED DRUG - OTHER] PO SCH (08:41)
--- NOTE | 2016-12-10 10:36 | DS ---
DATE OF DISCHARGE: 12/09/2016 DISCHARGE SUMMARY/PSYCHIATRIC PROGRESS NOTE This is a late entry for 12/09/2016, covers elements not covered in my initial note. REASON FOR ADMISSION: Please refer to the admission history for details. Briefly, the patient is a 71-year-old male with Lewy body dementia, referred from [facility], where he presented from [facility] on account of worsening sundowning, aggressive behavior, he is verbally threatening and threatened to shoot staff with a short gun, deemed potentially dangerous at the longterm resulting in the referral and then on to us. SIGNIFICANT FINDINGS AND CLINICAL COURSE: Following admission, the patient was seen daily individually by myself, followed medically per Dr. Shah/Dr. Mihcael. Adjustments were made in his psychotropics and he seemed to respond to a combination of Zoloft 200 mg a day, Wellbutrin reduced to 150 mg daily as higher dosage was causing increased irritability, Seroquel was 25 b.i.d., Zyprexa p.r.n., Exelon patch 4.6 mg a day, may need to be increased in due course; Namenda 10 b.i.d. PHYSICAL EXAMINATION: VITAL SIGNS: Prior to discharge on 12/09/2016; temperature 98.7, BP 126/80, pulse 68, and respirations 18. REVIEW OF SYSTEMS: Ambulation impaired, in his wheelchair. No CV, , pulmonary, eye system symptoms on review. MENTAL STATUS EXAM: Oriented to himself and situation. He was getting quite anxious, refusing to leave at discharge and I spent sometime with him, with the nursing staff. He was fearful that some of his belongings were not being returned to him and repeatedly questioning this. His anxiety appeared to make some of the restlessness worse, but then he seemed to calm down prior to discharge with the staff members. Speech coherent, abstraction fair, computation impaired, language function intact, attention span short. Mood and affect, despite the above, was overall improved. LABORATORY DATA: Reviewed. FINAL DIAGNOSES: Major neurocognitive disorder, Lewy body type with delusion, depression, behavioral disturbance; anxiety disorder, unspecified; impulse control disorder, unspecified; impaired ambulation in a wheelchair. Rest diagnosis is unchanged including being hard of hearing, hypertension, status post myocardial infarction, status post polio, pacemaker in place, sleep apnea. DISCHARGE MEDICATIONS: Please refer to the [facility]. DISCHARGE INSTRUCTIONS: Outpatient and psychiatric followup at the longterm. Time for discharge and management greater than 30 minutes. ALBINA ASHBY MD DR: GHAZAL/lamin JOB#: [id number] / [id number]
--- NOTE | 2016-12-10 10:40 | PN ---
DATE: 12/08/2016 PSYCHIATRIC PROGRESS NOTE This is a late entry for 12/08/2016, covers elements not covered in my initial note. SUBJECTIVE: The patient remains somewhat confused, gets agitated at times with cares, but redirects. He is otherwise compliant through is brief in the toilet with part of his confusion, but accepted redirection by nursing staff. REVIEW OF SYSTEMS: Ambulation impaired, in his wheelchair. No CV, , pulmonary, eye system symptoms on review. MENTAL STATUS EXAM: Oriented to himself and situation. Speech has some latency, coherent. He has a sense of humor, abstraction fair, computation impaired, language function intact. Attention span short. IMPRESSION: Major neurocognitive disorder, Lewy body type with delusion, depression, behavioral disturbance. Rest diagnoses unchanged. PLAN: Continue psychotropics mentioned in my initial note. Adjust further as clinically indicated. MAN Fei ASHBY MD DR: GHAZAL/lamin JOB#: [id number] / [id number]
== END 2016-12-09 10:50 | DRG 884 ==
LOC: GEROPSY 17:37
PROVIDERS: ADMIT Psychiatry & Neurology Psychiatry; ATTEND Psychiatry & Neurology Psychiatry
DX: F01.51 Vascular dementia, unspecified severity, with behavioral disturbance (principal); F02.81 Dementia in other diseases classified elsewhere, unspecified severity, with behavioral disturbance; F63.9 Impulse disorder, unspecified; G30.9 Alzheimer's disease, unspecified; G31.83 Neurocognitive disorder with Lewy bodies; D69.6 Thrombocytopenia, unspecified; F22 Delusional disorders; F32.9 Major depressive disorder, single episode, unspecified; F41.9 Anxiety disorder, unspecified; G47.30 Sleep apnea, unspecified; H91.90 Unspecified hearing loss, unspecified ear; I10 Essential (primary) hypertension; L21.9 Seborrheic dermatitis, unspecified; R32 Unspecified urinary incontinence; Z86.12 Personal history of poliomyelitis; I25.2 Old myocardial infarction; Z86.74 Personal history of sudden cardiac arrest; Z95.0 Presence of cardiac pacemaker
CPT/HCPCS: 36415; 70450; 80053; 80061; 82306; 82607; 83036; 83540; 83550; 83735; 84436; 84443; 84480; 85027; 86592; 86593; 93005; 97110; 97116; 97530